=== PATIENT | female | born 1935 | race Caucasian/White ===

== ENCOUNTER 2017-07-05 13:57 | Inpatient (IN) | payer MEDICARE ==
[2017-07-05 14:46] LABS: PTT 36.2 SEC (22.9-36.1); Prothrombin Time 13.4 SEC (12.0-14.7)
[2017-07-05] MEDS ORDERED: Zolpidem Tartrate 5 MG TAB PO PRN (15:48)
[2017-07-05] MEDS ORDERED: Ondansetron HCl/PF 4 MG/2 ML Vial IVP PRN (15:48)
[2017-07-05] MEDS ORDERED: Sodium Chloride 0.9% 1,000 ML IV SCH (16:00)
--- NOTE | 2017-07-05 16:01 | PDOC.EVN ---
Event Note - Event Note Event Note: H&P #[id number]
[2017-07-05 16:09] LABS: Hemoglobin A1c 5.6 % (4.0-6.0)
[2017-07-05] MEDS ORDERED: Aspirin 81 mg Enteric Coated Tablet PO SCH (17:30)
--- NOTE | 2017-07-05 18:05 | ULT ---
CAROTID DOPPLER ULTRASOUND EVALUATION: HISTORY: TIA and possible stroke. TECHNIQUE: Multiple longitudinal and transverse images of the carotid arteries were obtained using a Multi-Hertz linear array transducer. Real-time, color-flow, and spectral wave-form Doppler analysis was used to evaluate the carotid arteries. FINDINGS: Images demonstrate calcified and noncalcified plaques seen in the right and left internal carotid art eries. flow velocities in the right ICA measure 81/20 cm per second and in the left ICA 124/34 cm pe r second. Findings suggest mild proximal right ICA and mild to moderate proximal left ICA stenosis, approximately 10% to 15% on the right and approximately 30% to 40% on the left ICA. Antegrade flow i s seen in both vertebral arteries. The ICA/CCA ratio measures 1.2 on the right and 1.6 on the left. IMPRESSION: Approximately 15% to 20% right internal carotid artery and approximately 30% left internal carotid ar cara stenosis. POS: [facility]
[2017-07-05] MEDS ORDERED: Ondansetron ODT 4 MG TAB SL PRN (18:09)
[2017-07-05] MEDS ORDERED: Nitroglycerin 0.4 MG TAB (25 Tab Bottle) SL PRN (18:23)
[2017-07-05] MEDS ORDERED: hydrALAZINE 25 MG TAB PO SCH (18:30)
[2017-07-05] MEDS ORDERED: Diltiazem HCl CD 300 mg Capsule PO SCH (18:30)
[2017-07-05] MEDS ORDERED: cloNIDine 0.2 MG TAB PO SCH (18:30)
[2017-07-05 18:38] VITALS: BMI 25.8
--- NOTE | 2017-07-05 19:59 | HP ---
DATE OF ADMISSION: 07/05/2017 CHIEF COMPLAINT: Syncope and palpitation. HISTORY OF PRESENT ILLNESS: This is a 81-year-old female, who is being admitted to the hospital, kirk jade coming into the ER due to syncope and palpitation. Patient states that she was in the bathroom an d then when she got up she was unable to make it back to bed that she almost syncopized and passed ou t. The patient states that she was able to sit down and did not have a fall or anything along those lines, but did admit to some palpitation prior to coming to the ER and patient in the ER was found to have a normal sinus rhythm; however, was found to have significant weakness. The patient had a CT s can done at outside ER, which showed no acute intracranial abnormalities or bleeding and was transfer red to [facility] for further management and care. The patient at this point in time is being yadira luated Internal Medicine for admission. Patient currently states that she feels weak, but denies any other complaints or associated symptoms. No alleviating or aggravating factors noted. The patient was seen and examined with and at bedside. All questions answered. ALLERGIES: SHAUN states that she was told not to take it as edematous or kidneys. PAST MEDICAL HISTORY: Positive for paroxysmal atrial fibrillation, syncope, hypertension, and shepherd ry artery disease. HOME MEDICATIONS: See MAR. SOCIAL HISTORY: Denies any drinking or smoking. Currently, however, did quit smoking a few years ba ck, having had a [id number] smoking history. FAMILY HISTORY: Positive for hypertension on both sides. REVIEW OF SYSTEMS: All systems reviewed. Pertinent positives in the HPI, otherwise negative. PHYSICAL EXAMINATION: VITAL SIGNS: Blood pressure is 170/81, heart rate is 70, respiratory rate of 12, and temperature of 98. GENERAL: The patient lying in bed, appears in mild distress and appears significantly weak. HEENT: Pupils equal, round, reactive to light and accommodation. Oral cavity moist and pink. Normo cephalic, atraumatic. NECK: Supple, mobile, nontender, thyroid: Reveals carotid bruit present bilateral carotids. LUNGS: Examination Reveals clear to auscultation bilaterally. No murmurs, gallops or rubs. No rale s, rhonchi, or wheezing appreciated. CARDIOVASCULAR: Reveals regular rate and rhythm. S1, S2, 2/6 systolic ejection murmur appreciated. ABDOMEN: Positive bowel sounds, soft, nontender, nondistended. EXTREMITIES: 2+ peripheral pulses. No loss of motor or sensory function. No edema noted. NEUROLOGIC: Cranial nerves II-XII intact. Answering all commands, answering all questions and follo wing all commands appropriately. ASSESSMENT AND PLAN: 1. Syncope. 2. Paroxysmal atrial fibrillation. 3. Hypertension. 4. Coronary artery disease. We will admit the patient to tele ops at this point in time, we will provide the patient with aspirin as well as 1 liter of normal saline at 70 mL per hour. We will also put the patient on deep venous thrombosis prophylaxis with heparin 55,000 units subcu b.i.d. and gastrointestinal prophylaxis with 2 0 p.o. b.i.d., consult to Dr. Sifuentes, who is a general manager in training. We will also obtain echocardiogram, MRI o f the brain and carotid ultrasounds. Check A1c for diabetic status. Also, will check thyroid hormon e urinalyses and serial labs. The patient wishes to remain a full code at this point in time. Disch arge planning in 24-48 hours depending on lab results. If they are negative and cleared by Cardiolog y and the patient is feeling well. The patient will need to follow up with outpatient for further wo rkup for her syncopal episodes. We will also obtain orthostatic vital signs. Case and plan discusse d with the patient's daughter and at length. They understand and agree with this plan.
[2017-07-05] MEDS: Famotidine 20 MG TAB PO SCH (21:33)
[2017-07-05] MEDS: Heparin 5,000 UNITS/ML VIAL SC SCH (21:34)
[2017-07-06 02:54] LABS: Bilirubin Negative (Negative); Blood, Urine Negative (Negative); Clarity CLEAR (Clear); Glucose, Urine (Dipstick) 100 mg/dL (Negative); Leukocyte Small (Negative); Nitrite Negative (Negative); Protein, Urine (Dipstick) Negative (Neg-Trace); Specific Gravity, Urine 1.009 (1.002-1.036); Urobilinogen 0.2 mg/dL (0.2-1.0); pH, Urine 6.5 (5.0-9.0)
[2017-07-06 02:59] LABS: Bacteria/HPF None Seen HPF (None Seen); Hyaline Casts/LPF 0-3 HYALINE CAST LPF (0-3 Hyaline); Pathc Cast-AUWi Flag 0.29 (0-2.49); RBC/HPF 0-3 HPF (0-3); Squamous Epithelial 0-3 HPF (0-3)
[2017-07-06 05:57] LABS: #Basophils 0.1 thou/uL (0.0-0.2); #Eosinphils 0.1 thou/uL (0.0-0.7); #Lymphocytes 1.7 thou/uL (1.20-3.40); #Monocytes 0.5 thou/uL (0.11-0.59); #Neutrophils 6.7 thou/uL (1.40-6.50); %Basophils 0.6 % (0.0-1.0); %Eosinophils 1.5 % (0.0-10.0); %Lymphocytes 18.3 % (21.0-51.0); %Monocytes 5.6 % (0.0-10.0); Hemoglobin 11.6 g/dL (12.0-16.0); Mean Corpuscular HGB CONC 32.6 g/dL (32.0-36.0); Mean Corpuscular Hemoglobin 30.5 pg (27.0-31.0); Mean Corpuscular Volume 93.7 fl (81.0-99.0); Mean Platelet Volume 6.6 fL (7.4-10.4); Platelet Count 208 thou/uL (130-400); RBC Distribution Width 12.4 % (11.5-14.5); Red Blood Cell (RBC) Count 3.79 mill/uL (4.20-5.40)
[2017-07-06 06:17] LABS: Anion Gap 13 mmol/L (10-20); BUN (Urea Nitrogen) 17 mg/dL (9.8-20.1); Calc. Creatinine Clearance 38 mL/min (70-130); Calcium 9.1 mg/dL (7.8-10.44); Carbon Dioxide 24 mmol/L (23-31); Chloride 107 mmol/L (98-107); Estimated GFR-MDRD 43; Glucose 113 mg/dL (83-110); Potassium 3.9 mmol/L (3.5-5.1); Sodium 140 mmol/L (136-145)
[2017-07-06] MEDS: Diltiazem HCl CD 300 mg Capsule PO SCH (09:32)
[2017-07-06] MEDS: Famotidine 20 MG TAB PO SCH ×2 (09:34→22:14)
[2017-07-06] MEDS: hydrALAZINE 25 MG TAB PO SCH ×3 (09:34→22:13)
[2017-07-06] MEDS: Heparin 5,000 UNITS/ML VIAL SC SCH ×2 (09:38→22:13)
--- NOTE | 2017-07-06 11:19 | MRI ---
MRI BRAIN WITHOUT CONTRAST: HISTORY: Left-sided weakness. TIA. CORRELATION: CT scan from the previous day. FINDINGS: There are multiple foci of T2 prolongation in the periventricular white matter, consistent with chron ic small vessel ischemic disease. There is ventricular sulcal prominence due to cortical atrophy. N o restricted diffusion is seen. There is an old lacunar infarct in the right basal ganglia. There i s fluid in the mastoid air cells, right greater than left. IMPRESSION: No evidence of acute intracranial process. POS: [facility]
[2017-07-06] MEDS: Acetaminophen 325 MG TAB PO PRN ×2 (11:29→16:14)
--- NOTE | 2017-07-06 15:37 | PDOC.PN ---
- Subjective Encounter Start Date: 07/06/17 Encounter Start Time: 14:00 Patient is seen today, admitted with Weakness which resolved but has perssitant weakness of right low er extremity since recent weeks, Cindy MRI did show remote h/o stroke, which pt is not aware, pt has h/o paroxysmall Afib, now rhythm is regular. She had no PT/OT evaluation completed this admission,. - Objective Resuscitation Status: Resuscitation Status FULL:Full Resuscitation MAR Reviewed: Yes Vital Signs & Weight: Vital Signs (12 hours) Temp Pulse Resp BP BP BP Pulse Ox 07/06/17 15:10 77 207/88 H 07/06/17 15:09 207/88 H 07/06/17 12:13 98.4 F 77 16 151/64 H 95 07/06/17 09:49 98.6 F 64 16 07/06/17 09:34 64 155/64 H 07/06/17 09:32 64 155/64 H 07/06/17 07:20 98.6 F 64 15 155/64 H 93 L 07/06/17 04:36 98.5 F 66 14 137/53 L 93 L Weight Weight 141 lb 1.533 oz Result Diagrams: 07/06/17 05:15 07/06/17 05:15 Radiology Reviewed by me: Yes Phys Exam - Physical Examination HEENT: PERRLA, moist MMs Neck: no nodes, no JVD Respiratory: no wheezing, no rales Cardiovascular: RRR, no significant murmur Gastrointestinal: soft Musculoskeletal: no edema, pulses present Right Lower Extemity weakness. Lymphatic: no nodes Psychiatric: normal affect Skin: no rash Dx/Plan (1) Paroxysmal A-fib Code(s): I48.0 - PAROXYSMAL ATRIAL FIBRILLATION Status: Acute Comment: PT is In and out of Afib, with a remote/ Recent h/o Stroke Left Basal gaangli, has persitant weakness right leg. Pt will need Cardioogy to Decide if she would beneifit from Anticoagulation due to her Stroke and paroxysmal Afib. Echo is pending. (2) TIA (transient ischemic attack) Status: Acute Comment: MRI showed no acutre infarct but has recent infarct. (3) CVA (cerebral vascular accident) Code(s): I63.9 - CEREBRAL INFARCTION, UNSPECIFIED Status: Acute (4) HTN (hypertension) Code(s): I10 - ESSENTIAL (PRIMARY) HYPERTENSION Status: Acute Comment: Well controlled, But Family says sometimes BP are not controlled at Home, need monitoring. - Plan cont current plan of care, plan discussed w/ family, laura catheter, PT/OT, social work lecturer, incentive spirometry, out of bed/ambulate, DVT proph w/lovenox * . - Discharge Day Encounter end time: 14:35 Review of Systems - Review of Systems Constitutional: negative: fever, chills, sweats, weakness, malaise, other Eyes: negative: Pain, Vision Change, Conjunctivae Inflammation, Eyelid Inflammation, Redness, Other ENT: negative: Ear Pain, Ear Discharge, Nose Pain, Nose Discharge, Nose Congestion, Mouth Pain, Mouth Swelling, Throat Pain, Throat Swelling, Other Respiratory: negative: Cough, Dry, Shortness of Breath, Hemoptysis, SOB with Excertion, Pleuritic Pain, Sputum, Wheezing Cardiovascular: negative: chest pain, palpitations, orthopnea, paroxysmal nocturnal dyspnea, edema, light headedness, other Gastrointestinal: negative: Nausea, Vomiting, Abdominal Pain, Diarrhea, Constipation, Melena, Hematochezia, Other Genitourinary: negative: Dysuria, Frequency, Incontinence, Hematuria, Retention , Other Musculoskeletal: negative: Neck Pain, Shoulder Pain, Arm Pain, Back Pain, Hand Pain, Leg Pain, Foot Pain, Other Skin: negative: Rash, Lesions, Benjie, Bruising, Other - Medications/Allergies Allergies/Adverse Reactions: Allergies Allergy/AdvReac Type Severity Reaction Status Date / Time Sulfa (Sulfonamide Allergy Verified 07/06/17 04:01 Antibiotics) Medications: Current Medications Acetaminophen (Tylenol) 325 mg PO Q4H PRN PRN Reason: Headache/Fever or Pain Last Admin: 07/06/17 11:29 Dose: 325 mg Clonidine (Catapres) 0.2 mg PO BIDPRN PRN PRN Reason: .SBP>170 Diltiazem HCl (Cardizem Cd) 300 mg PO QAM [facility] Last Admin: 07/06/17 09:32 Dose: 300 mg Famotidine (Pepcid) 20 mg PO BID [facility] Last Admin: 07/06/17 09:34 Dose: 20 mg Heparin Sodium (Porcine) (Heparin) 5,000 units SC BID [facility] Last Admin: 07/06/17 09:38 Dose: 5,000 units Hydralazine HCl (Apresoline) 50 mg PO TID [facility] Last Admin: 07/06/17 15:10 Dose: 50 mg Nitroglycerin (Nitrostat) 0.4 mg SL Q5MIN PRN PRN Reason: Chest Pain Ondansetron HCl (Zofran) 4 mg IVP Q6H PRN PRN Reason: Nausea/Vomiting Zolpidem Tartrate (Ambien) 5 mg PO HSPRN PRN PRN Reason: Insomnia
--- NOTE | 2017-07-06 15:56 | CON ---
DATE OF CONSULTATION: 07/06/2017 REASON FOR CONSULTATION: Presyncope. HISTORY OF PRESENT ILLNESS: Ms. Dimas is a 81-year-old woman with a past history of remote tobacco a buse in addition to hypertension, who recently presented with near syncope. She states her legs sesar me weak. She nearly passed out. She had nausea and dizziness. No other ameliorating, exacerbating, or precipitating factors present. She had no chest pain or pressure noted. She has chronic shortne ss of breath. She then presented to the emergency room with the above. There was concern for CVA, b ut her MRI so far has been negative. PAST MEDICAL HISTORY: As described above including right and left knee surgery, hypertension. ALLERGIES: SULFA. HOME MEDICATIONS: Include, aspirin, Catapres, hydralazine, Cartia, Nitrostat, and atorvastatin. REVIEW OF SYSTEMS: Ten-point review of systems reviewed and as above, otherwise negative. PHYSICAL EXAMINATION: GENERAL: Patient is a pleasant female who is in no acute distress. She does appear older than state d age. VITAL SIGNS: Blood pressure 207/88, pulse 77, and temperature 98.4 NEUROLOGIC: The patient is alert and oriented times 3 with no focal neurologic deficits. HEENT: Sclerae without icterus. Mouth has moist mucous membranes with normal pallor. NECK: No JVD. Carotid upstroke brisk. No bruits bilaterally. LUNGS: Clear to auscultation with unlabored respirations. BACK: No scoliosis or kyphosis. CARDIAC: Regular rate and rhythm with normal S1 and S2. No S3 or S4 noted. No significant rubs, murmurs, thrills, or gallops noted throughout the precordium. PMI is not displaced. There is no parasternal heave. ABDOMEN: Soft, nontender, nondistended. No peritoneal signs present. No hepatosplenomegaly. No abnormal striae. EXTREMITIES: 2+ femoral and 2+ dorsalis pedis pulses. No cyanosis, clubbing, or edema. SKIN: No gross abnormalities. PERTINENT LABORATORY DATA: Hemoglobin 11.6. Creatinine 1.22, potassium 3.9. Carotid Doppler 15% to 20% right internal carotid stenosis, 30% left internal carotid stenosis, other sosa negative. Echo with Doppler pending. IMPRESSION: 1. Presyncope. 2. Hypertension. RECOMMENDATIONS: Ms. Dimas' EKG did show a nonspecific ST-T wave changes. At this point, we would r ecommend a noninvasive stress study to assess for any areas of ischemia. She did have nausea, vomiti ng, diaphoresis, which may be related to a vasovagal syncope, but may also be due to underlying coron anayeli disease. Her CK troponins are negative. Echo with Doppler pending. If the above is negative, melba lopez would then recommend a 3-week outpatient event recorder to assess for any areas of ischemia.
[2017-07-06] MEDS: cloNIDine 0.2 MG TAB PO PRN (16:27)
[2017-07-07 04:47] LABS: #Basophils 0.1 thou/uL (0.0-0.2); #Eosinphils 0.2 thou/uL (0.0-0.7); #Lymphocytes 1.6 thou/uL (1.20-3.40); #Monocytes 0.5 thou/uL (0.11-0.59); #Neutrophils 4.6 thou/uL (1.40-6.50); %Basophils 0.7 % (0.0-1.0); %Eosinophils 2.9 % (0.0-10.0); %Lymphocytes 22.3 % (21.0-51.0); %Monocytes 7.6 % (0.0-10.0); %Neutrophils 66.5 % (42.0-75.0); Hemoglobin 11.7 g/dL (12.0-16.0); Mean Corpuscular HGB CONC 33.2 g/dL (32.0-36.0); Mean Corpuscular Hemoglobin 31.1 pg (27.0-31.0); Mean Corpuscular Volume 93.4 fl (81.0-99.0); Mean Platelet Volume 6.6 fL (7.4-10.4); Platelet Count 213 thou/uL (130-400); RBC Distribution Width 12.3 % (11.5-14.5); Red Blood Cell (RBC) Count 3.78 mill/uL (4.20-5.40)
[2017-07-07 05:11] LABS: Anion Gap 13 mmol/L (10-20); BUN (Urea Nitrogen) 11 mg/dL (9.8-20.1); Calc. Creatinine Clearance 38 mL/min (70-130); Calcium 9.3 mg/dL (7.8-10.44); Carbon Dioxide 26 mmol/L (23-31); Chloride 105 mmol/L (98-107); Estimated GFR-MDRD 43; Glucose 111 mg/dL (83-110); Potassium 3.5 mmol/L (3.5-5.1); Sodium 140 mmol/L (136-145)
[2017-07-07] MEDS: cloNIDine 0.2 MG TAB PO PRN (05:44)
[2017-07-07] MEDS ORDERED: Ondansetron ODT 4 MG TAB PO PRN (06:05)
[2017-07-07] MEDS: Diltiazem HCl CD 300 mg Capsule PO SCH (10:56)
[2017-07-07] MEDS: Famotidine 20 MG TAB PO SCH (10:56)
[2017-07-07] MEDS: Heparin 5,000 UNITS/ML VIAL SC SCH (10:56)
[2017-07-07] MEDS: hydrALAZINE 25 MG TAB PO SCH (10:56)
[2017-07-07 12:12] VITALS: TEMP 97.2
[2017-07-07] MEDS ORDERED: Acetaminophen 325 MG TAB PO PRN (12:20)
[2017-07-07] MEDS ORDERED: Regadenoson 0.4 MG/5 ML SYRINGE ONE (13:52)
--- NOTE | 2017-07-07 14:00 | NM ---
CARDIAC SPECT: HISTORY: A 81-year-old female with syncope, atrial fibrillation, and hypertension. TECHNIQUE: A myocardial perfusion scan was performed using the single isotope one day protocol with technetium 9 9m sestamibi, and 11 millicuries was injected intravenously for the rest exam, followed by 33 millicu tessa for the stress study. Pharmacologic stress with Lexiscan was monitored and interpreted by Dr. Naseem montana. FINDINGS: Homogeneous tracer distribution was seen in the myocardial segments on stress and images without fixe d or reversible defects. GATED SPECT LVEF: 67%. WALL MOTION EXAM: Normal. IMPRESSION: Normal myocardial perfusion scan. POS: [facility]
[2017-07-07 15:00] LABS: Cardiac Risk 5.7 (Less than 4.5)
[2017-07-07 19:02] VITALS: BP 157/70
--- NOTE | 2017-07-07 20:25 | EKG ---
Test Reason : Blood Pressure : / mmHG Vent. Rate : 079 BPM Atrial Rate : 079 BPM P-R Int : 146 ms QRS Dur : 084 ms QT Int : 384 ms P-R-T Axes : 044 -12 035 degrees QTc Int : 440 ms Normal sinus rhythm Normal ECG No previous ECGs available Confirmed by CHAR MANZANO (2) on 07/07/2017 8:24:48 PM Referred By: LUANNE Confirmed By:CHAR MANZANO
[2017-07-08] MEDS ORDERED: Famotidine 20 MG TAB PO SCH (09:00)
--- NOTE | 2017-07-08 14:01 | DIS ---
DATE OF ADMISSION: 07/05/2017 DATE OF DISCHARGE: 07/07/2017 ADMITTING DIAGNOSIS: Acute syncope. DISCHARGE DIAGNOSIS: Acute syncope likely from paroxysmal atrial fibrillation. SECONDARY DIAGNOSES 1. Hypertension. 2. Coronary artery disease. 3. History of remote cerebrovascular accident. CONSULTANTS INVOLVED: Dr. Cardoza. HISTORY OF PRESENT ILLNESS AND HOSPITAL COURSE: In brief, this is a 81-year-old white female, who wa s admitted to the hospital while coming into the ER due to syncope and palpitations. She states that she was in the bathroom when she got up she was unable to make it back to the bed and that she almos t syncopized and passed out. The patient states that she was able to sit down and did not have a fal l or anything along those lines. But she was found to have a normal sinus rhythm; however, in the ER and a CT scan of the head was done, which did not show any evidence of acute cardiopulmonary abnorma lities, but did show an old and recent infarct, so the patient had a MRI of the brain, which did reve al the patient had a subacute to recent infarct, but there was no acute infarction. The patient did not have any acute weakness, but she had a persistent weakness of her right lower extremity. So, Car diology was consulted as there was suspicion that the patient could be having drop attacks is seconda ry to paroxysmal atrial fibrillation or some arrhythmias, so Cardiology did a nuclear stress test, wh ich came back unremarkable and 2D echo was normal with good EF. Patient was in normal sinus rhythm, so there was no evidence that the patient had a CVA during this admission and she was on aspirin and because of the risk of falls, the patient was advised to not on any anticoagulation except for aspiri n. The patient was also started on atorvastatin because the suspicion of a TIA. The patient was ritchie sely monitored and also was planned for a Holter monitor by Cardiology. The patient was discharged h ome with a Holter monitor. PHYSICAL EXAMINATION: On date of discharge: VITAL SIGNS: Blood pressures are 148/71, heart rate is 72, respiration is 18, and saturation 95%. GENERAL: The patient is moderately obese, moderately nourished. CARDIOVASCULAR: S1 and S2 normal. No murmurs, rubs, or gallops. LUNGS: Bilateral air entry was equal. No wheezing, no crackles. ABDOMEN: Soft, nontender. No guarding or rebound tenderness. Bowel sounds normal. DISCHARGE MEDICATIONS: Atorvastatin 20 mg p.o. daily. HOME MEDICATIONS: Aspirin 81 mg daily, clonidine 0.2 mg p.o. b.i.d., diltiazem 300 mg p.o. daily, hy dralazine 50 mg p.o. t.i.d., and nitroglycerin 0.4 mg p.r.n. for chest pain. DISCHARGE INSTRUCTIONS: 1. The patient will be going home with a Holter monitor. 2. The patient will follow up with Cardiology as needed and as per their instructions. 3. The patient is going to follow up with the primary care physician in 1-2 weeks. DISCHARGE INSTRUCTIONS: 1. The patient will continue with a cardiac diet at this time. 2. Continue activity as tolerated. I spent 35 minutes with this patient on day of discharge.
== END 2017-07-07 15:31 | disposition home or self-care (01) | DRG 69 ==
LOC: ERS 13:57 → 2SE 14:44
PROVIDERS: ADMIT Internal Medicine; ATTEND Internal Medicine
DX: G45.9 Transient cerebral ischemic attack, unspecified (principal); I48.0 Paroxysmal atrial fibrillation; I10 Essential (primary) hypertension; I25.10 Atherosclerotic heart disease of native coronary artery without angina pectoris; Z87.891 Personal history of nicotine dependence; Z79.82 Long term (current) use of aspirin
CPT/HCPCS: 36415; 36416; 70551; 78452; 80048; 80061; 81001; 83036; 84443; 85025; 93005; 93010; 93017; 93306; 93880; A9500; G8978-GP-CL; G8979-GP-CK; G8987-GO-CI; G8988-GO-CI; G8989-GO-CI; J1644; J2785; Q0162

== ENCOUNTER 2018-08-05 12:04 | Inpatient (IN) | payer MEDICARE ==
--- NOTE | 2018-08-05 13:55 | CT ---
CT of the face: 08/05/2018 COMPARISON: None HISTORY: Right-sided facial swelling TECHNIQUE: Serial axial CT imaging obtained at 2.5 mm intervals through the face with IV contrast. Co raul and sagittal reformatted imaging obtained. FINDINGS: Visualized brain parenchyma demonstrates prominence of the ventricular system and extensive periventricular hypodensity suggesting significant small vessel disease. The frontal sinuses, ethmoid air cells, maxillary sinuses, sphenoid sinuses, and imaged mastoid air c ells demonstrate no acute findings. There are a few opacified mastoid air cells inferiorly on the right of doubtful clinical significance. There is soft tissue swelling with subcutaneous fat stranding along the superior and lateral aspect o f the right orbit. The retroantral fat and the parapharyngeal fat appears clear bilaterally. There is enlargement of the right parotid gland with respect to the left. Margins of the right paroti d gland are irregular and the right parotid gland appears edematous, with stranding of the adjacent subcutaneous fat and thickening of the adjacent skin. There is no discrete mass identified within the parotid gland on either side. There is no calcification seen along the course of the parotid duct on either side. Submandibular glands appear grossly unremarkable bilaterally. The internal carotid artery and the common carotid artery are medialized, right greater than left. Th ere is prominent atherosclerotic calcification involving the distal CCA and proximal ICA bilaterally, left greater than right. There is no evidence for a soft tissue abscess. Review of the osseous structures demonstrates no acut e findings. Imaged cervical spine demonstrates significant multilevel facet and uncovertebral osteophyte formatio n. Mildly enlarged level 1 and level 2A lymph nodes are seen, right greater than left. IMPRESSION: Soft tissue inflammatory change on the right in the right periorbital region and adjacent to the right parotid gland. The right parotid gland is enlarged and edematous with peripheral contour irregularity and overlying subcutaneous fat stranding suggesting right parotiditis.
[2018-08-05] MEDS ORDERED: Sodium Chloride 0.9% 1,000 ML IV SCH (14:37)
[2018-08-05] MEDS ORDERED: Guaifenesin DM 100-10/5 ML UDCUP PO PRN (14:37)
[2018-08-05] MEDS ORDERED: Senokot S 8.6-50 MG TAB PO PRN (14:37)
[2018-08-05] MEDS ORDERED: Bisacodyl 10 MG SUPP PR PRN (14:37)
[2018-08-05] MEDS: cefTRIAXone\\ROCEPHIN 1 GM in Sodium Chloride 0.9% 100 ML IVPB SCH (16:00)
[2018-08-05] MEDS: Acetaminophen 325 MG TAB PO PRN (16:02)
[2018-08-05 16:34] VITALS: BMI 24.1
[2018-08-05] MEDS ORDERED: Cepastat Lozenges 1 LOZ PO PRN (16:37)
[2018-08-05] MEDS: Clindamycin/D5W 600 MG in Premix Bag 1 BAG IVPB SCH ×2 (17:11→23:34)
--- NOTE | 2018-08-05 18:58 | HP ---
REASON FOR ADMISSION: Right parotitis with facial cellulitis. HISTORY OF PRESENTING ILLNESS: The patient gives history of waking up around 4 a.m. to go to restroom. Her legs apparently gave up, but her managed to get her to the bed. Around 5:30 a.m., the usual time she wakes up, the patient was disoriented and thought it was night. Around 7 a.m., her daughter noticed swelling of her right face, eye, and neck area, this was red in color as well. She was tender to touch to the area. They initially thought it was stroke and called EMS. also mentions that the patient was asking for her mom who is 11 years now, they all got scared in addition to all of this. She has not had any new medications. Her dentures are old, which she rarely uses per patient. The patient does not have any teeth. No history of shingles in the past. Has no trouble with vision at present. She can move her eye balls in all directions now. PAST MEDICAL AND SURGICAL HISTORY: History of chronic kidney disease stage 3, dyslipidemia, prior history of TIA, chronic atrial fibrillation, history of AAA, right knee surgery done more than 20 years back, cataract surgeries in both eyes. The patient has a senior software systems engineer embedded in her chest wall per the patient and has a device to transmit the same in the house. CURRENT MEDICATIONS: The patient is on, 1. Cardizem CD 300 mg daily. 2. Hydralazine 100 mg three times daily. 3. Clonidine 0.2 mg twice daily p.r.n. 4. Eliquis 2.5 mg twice daily. 5. MiraLAX 17 g daily. 6. Metoprolol extended release 50 mg daily. ALLERGIES: ALLERGIC TO SULFA. PERSONAL HISTORY: Does not abuse alcohol or drugs. Quit smoking more than 15 years back. Lives with her . FAMILY HISTORY: Both her parents are diseased. The patient does not recall the exact reason. CODE STATUS: Full. POWER OF CHIP SILO TENDER: Her . REVIEW OF SYSTEMS: CONSTITUTIONAL: Negative for weight loss or gain, ability to conduct usual activities. SKIN: Negative for rash, itching. EYES: Negative for double vision, pain. ENT/MOUTH: Negative for nose bleeding, neck stiffness, pain, tenderness. CARDIOVASCULAR: Negative for palpitations, dyspnea on exertion, orthopnea. RESPIRATORY: Negative for shortness of breath, wheezing, cough, hemoptysis, fever or night sweats. GASTROINTESTINAL: Negative for poor appetite, abdominal pain, heartburn, nausea , vomiting, constipation, or diarrhea. GENITOURINARY: Negative for urgency, frequency, dysuria, nocturia. MUSCULOSKELETAL: Negative for pain, swelling. NEUROLOGIC/PSYCHIATRIC: Negative for anxiety, depression. ALLERGY/IMMUNOLOGIC: Negative for skin rash, bleeding tendency. PHYSICAL EXAMINATION: GENERAL: The patient is an 82-year-old female, who is currently in moderate distress from pain and swelling on the right side of her face. VITAL SIGNS: Blood pressure 164/60, pulse 66 per minute, respiratory rate 18 per minute, temperature 99.1 degrees Fahrenheit, and saturating 95% on room air. NECK: Supple. No elevated JVD. HEENT: Eyes; extraocular muscles intact. The patient has edema for upper and lower eyelids. She also has edema of right side of her face, which is in fact better per family members here. She has tenderness to the right parotid gland, which is edematous and erythematous as well. The edema and erythema trickles down into her right lateral neck wall. CARDIOVASCULAR: S1 and S2 heard. Regular rhythm. RESPIRATORY: Air entry 1+ bilateral. No rales or rhonchi. ABDOMEN: Soft. Bowel sounds heard. No tenderness, rigidity, or guarding. EXTREMITIES: The patient has pedal edema, but no edema in the legs. No calf tenderness. VASCULAR: Peripheral pulses 1+ bilateral. No ischemic ulcerations or gangrene. CENTRAL NERVOUS SYSTEM: No gross focal deficits noted. The patient is alert, awake, and oriented well now. PSYCHIATRIC: The patient's mood is euthymic. No hallucinations or delusions. LABORATORY DATA: BUN 38, creatinine 1.6, serum bicarb 27. Electrolytes stable. Liver enzymes within normal limits. Albumin is 4.1. White count of 14, hemoglobin and hematocrit 10 and 33, platelet count 214 with 88% neutrophils, MCV is 93. Facial bones CAT scan done shows soft tissue inflammatory change in the right periorbital region and adjacent to the right parotid gland. The right parotid gland is enlarged and edematous with peripheral contour irregularity and overlying subcutaneous fat stranding suggesting right parotitis. Chest x-ray done shows no acute cardiopulmonary disease. CT brain without contrast done shows no acute intracranial abnormality. CLINICAL IMPRESSION AND PLAN: The patient will be admitted to medical floor for right facial cellulitis with right parotitis. She will be placed on ceftriaxone and clindamycin. Blood cultures have been obtained in the ER. We will continue her aspirin, Eliquis, Lipitor, and Cardizem CD as before. I have discussed her findings with Dr. Diogenes Silverman, ENT physician over the phone. The plan is to give her antibiotics to see if right parotitis resolves. If it gets worse, Dr. Silverman will be contacted for help. We will also ask her to have sour lozenges every 4 to 6 hours to help with drainage of saliva from her right parotid glands. Job ID: [id number] MTDD
[2018-08-05] MEDS ORDERED: Nitroglycerin 0.4 MG TAB (25 Tab Bottle) SL PRN (19:28)
[2018-08-05] MEDS: Famotidine 20 MG TAB PO SCH (19:45)
[2018-08-05] MEDS: hydrALAZINE 25 MG TAB PO SCH (19:45)
[2018-08-05] MEDS: Apixaban 2.5 MG TAB PO SCH (20:33)
[2018-08-05] MEDS: Ondansetron PF 4 MG/2 ML Vial IVP PRN (21:52)
[2018-08-05] MEDS: cloNIDine 0.2 MG TAB PO PRN (23:55)
[2018-08-06 05:19] LABS: #Lymphocytes 0.9 thou/uL (1.20-3.40); #Monocytes 0.5 thou/uL (0.11-0.59); #Neutrophils 8.3 thou/uL (1.40-6.50); %Basophils 0.3 % (0.0-1.0); %Eosinophils 0.2 % (0.0-10.0); %Lymphocytes 9.6 % (21.0-51.0); %Monocytes 5.5 % (0.0-10.0); %Neutrophils 84.4 % (42.0-75.0); Hemoglobin 9.2 g/dL (12.0-16.0); Mean Corpuscular HGB CONC 32.7 g/dL (32.0-36.0); Mean Corpuscular Hemoglobin 31.1 pg (27.0-31.0); Mean Platelet Volume 6.6 fL (7.4-10.4); Platelet Count 188 thou/uL (130-400); RBC Distribution Width 13.4 % (11.5-14.5); Red Blood Cell (RBC) Count 2.95 mill/uL (4.20-5.40); White Blood Cell (WBC) Count 9.8 thou/uL (4.8-10.8)
[2018-08-06 05:40] LABS: Anion Gap 12 mmol/L (10-20); BUN (Urea Nitrogen) 28 mg/dL (9.8-20.1); Calc. Creatinine Clearance 32 mL/min (70-130); Calcium 8.9 mg/dL (7.8-10.44); Carbon Dioxide 27 mmol/L (23-31); Chloride 105 mmol/L (98-107); Estimated GFR-MDRD 37; Glucose 112 mg/dL (83-110); Potassium 3.8 mmol/L (3.5-5.1); Sodium 140 mmol/L (136-145)
[2018-08-06] MEDS: Clindamycin/D5W 600 MG in Premix Bag 1 BAG IVPB SCH ×3 (08:35→23:09)
[2018-08-06] MEDS ORDERED: Prevnar 13-Val Conj/PF 0.5 ML SYRINGE IM ONE (09:00)
[2018-08-06] MEDS: Famotidine 20 MG TAB PO SCH ×2 (09:04→19:33)
[2018-08-06] MEDS: Atorvastatin Calcium 20 MG TAB PO SCH (09:04)
[2018-08-06] MEDS: hydrALAZINE 25 MG TAB PO SCH ×3 (09:04→19:32)
[2018-08-06] MEDS: Aspirin 81 mg Enteric Coated Tablet PO SCH (09:04)
[2018-08-06] MEDS: Diltiazem HCl CD 300 mg Capsule PO SCH (09:05)
[2018-08-06] MEDS: Apixaban 2.5 MG TAB PO SCH ×2 (09:05→19:33)
[2018-08-06] MEDS: Acetaminophen 325 MG TAB PO PRN ×2 (12:12→23:47)
--- NOTE | 2018-08-06 15:11 | PDOC.PN ---
- Subjective Encounter Start Date: 08/06/18 Encounter Start Time: 12:15 Subjective: pt up in bed has intermittent confused - Objective Resuscitation Status - Order Detail: 08/05/18 14:30 Resuscitation Status Routine Resuscitation Status: FULL: Full Resuscitation Discussed with: POA: Vital Signs & Weight: Vital Signs (12 hours) Temp Pulse Resp BP BP Pulse Ox 08/06/18 11:19 98.4 F 67 14 153/79 H 93 L 08/06/18 09:05 67 163/79 H 08/06/18 09:04 67 163/75 H 08/06/18 08:00 98.4 F 67 20 163/75 H 93 L 08/06/18 03:40 98.6 F 74 16 135/65 96 Weight Weight 136 lb 3.931 oz Result Diagrams: 08/06/18 05:10 08/06/18 05:10 Phys Exam - Physical Examination right orbital mild edema, some left orbital swelling, pain to right maxillary area Neck: no nodes, no JVD, supple, full ROM Respiratory: no wheezing, no rales, no rhonchi, wheezing present, clear to auscultation bilateral Cardiovascular: RRR, no significant murmur, no rub, gallop, irregular Gastrointestinal: soft, non-tender, no distention, positive bowel sounds Musculoskeletal: no edema, pulses present, edema present Dx/Plan (1) Facial cellulitis Code(s): L03.211 - CELLULITIS OF FACE Status: Acute (2) HTN (hypertension) Code(s): I10 - ESSENTIAL (PRIMARY) HYPERTENSION Status: Acute Comment: Well controlled, But Family says sometimes BP are not controlled at Home, need monitoring. (3) Paroxysmal A-fib Code(s): I48.0 - PAROXYSMAL ATRIAL FIBRILLATION Status: Acute Comment: PT is In and out of Afib, with a remote/ Recent h/o Stroke Left Basal gaangli, has persitant weakness right leg. Pt will need Cardioogy to Decide if she would beneifit from Anticoagulation due to her Stroke and paroxysmal Afib. Echo is pending. (4) TIA (transient ischemic attack) Status: Acute Comment: MRI showed no acutre infarct but has recent infarct. - Plan will continue abx for now -: per family her mentation is improving -: pt encouraged to ambulate * . Review of Systems - Review of Systems Respiratory: negative: Cough, Dry, Shortness of Breath, Hemoptysis, SOB with Excertion, Pleuritic Pain, Sputum, Wheezing Cardiovascular: negative: chest pain, palpitations, orthopnea, paroxysmal nocturnal dyspnea, edema, light headedness, other Gastrointestinal: negative: Nausea, Vomiting, Abdominal Pain, Diarrhea, Constipation, Melena, Hematochezia, Other - Medications/Allergies Allergies/Adverse Reactions: Allergies Allergy/AdvReac Type Severity Reaction Status Date / Time Sulfa (Sulfonamide Allergy Verified 07/06/17 04:01 Antibiotics) Medications: Current Medications Acetaminophen (Tylenol) 650 mg PO Q4H PRN PRN Reason: Headache/Fever/Mild Pain (1-3) Last Admin: 08/06/18 12:12 Dose: 650 mg Apixaban (Eliquis) 2.5 mg PO BID [facility] Last Admin: 08/06/18 09:05 Dose: 2.5 mg Aspirin (Ecotrin) 81 mg PO DAILY [facility] Last Admin: 08/06/18 09:04 Dose: 81 mg Atorvastatin Calcium (Lipitor) 20 mg PO DAILY [facility] Last Admin: 08/06/18 09:04 Dose: 20 mg Bisacodyl (Dulcolax) 10 mg [place] DAILYPRN PRN PRN Reason: Constipation Clonidine (Catapres) 0.2 mg PO BID PRN PRN Reason: SBP Greater Than 180 Last Admin: 08/05/18 23:55 Dose: 0.2 mg Diltiazem HCl (Cardizem Cd) 300 mg PO DAILY [facility] Last Admin: 08/06/18 09:05 Dose: 300 mg Famotidine (Pepcid) 20 mg PO BID [facility] Last Admin: 08/06/18 09:04 Dose: 20 mg Guaifenesin/Dextromethorphan (Robitussin Dm) 15 ml PO Q4H PRN PRN Reason: Cough Hydralazine HCl (Apresoline) 100 mg PO TID [facility] Last Admin: 08/06/18 09:04 Dose: 100 mg Ceftriaxone Sodium 1 gm/ (Sodium Chloride) 100 mls @ 200 mls/hr IVPB Q24HR [facility] Last Admin: 08/05/18 16:00 Dose: 100 mls Clindamycin Phosphate/Dextrose (600 mg/ Device) 50 mls @ 100 mls/hr IVPB Q8H [facility] Last Admin: 08/06/18 08:35 Dose: 50 mls Metoprolol Succinate (Toprol Xl) 50 mg PO BID [facility] Last Admin: 08/06/18 09:05 Dose: 50 mg Nitroglycerin (Nitrostat) 0.4 mg SL Q5MIN PRN PRN Reason: Chest Pain Ondansetron HCl (Zofran) 4 mg IVP Q6H PRN PRN Reason: Nausea/Vomiting Last Admin: 08/05/18 21:52 Dose: 4 mg Senna/Docusate Sodium (Senokot S) 2 tab PO BIDPRN PRN PRN Reason: Constipation Throat Lozenges (Cepastat Lozenges) 1 joaquin PO Q2H PRN PRN Reason: Sore Throat
[2018-08-06] MEDS: cefTRIAXone\\ROCEPHIN 1 GM in Sodium Chloride 0.9% 100 ML IVPB SCH (17:08)
[2018-08-06] MEDS: Ondansetron PF 4 MG/2 ML Vial IVP PRN (19:03)
[2018-08-06] MEDS: cloNIDine 0.2 MG TAB PO PRN (23:47)
[2018-08-07] MEDS ORDERED: hydrALAZINE 20 MG/ML VIAL SLOW IVP PRN (01:33)
[2018-08-07] MEDS: Ondansetron PF 4 MG/2 ML Vial IVP PRN (01:46)
[2018-08-07] MEDS: hydrALAZINE 25 MG TAB PO SCH ×3 (08:49→21:46)
[2018-08-07] MEDS: Apixaban 2.5 MG TAB PO SCH ×2 (08:49→21:47)
[2018-08-07] MEDS: Famotidine 20 MG TAB PO SCH ×2 (08:50→21:47)
[2018-08-07] MEDS: Diltiazem HCl CD 300 mg Capsule PO SCH (08:52)
[2018-08-07] MEDS: Atorvastatin Calcium 20 MG TAB PO SCH (08:55)
[2018-08-07] MEDS: Aspirin 81 mg Enteric Coated Tablet PO SCH (08:55)
[2018-08-07] MEDS: Clindamycin/D5W 600 MG in Premix Bag 1 BAG IVPB SCH ×2 (08:59→15:27)
[2018-08-07 11:11] LABS: #Eosinphils 0.1 thou/uL (0.0-0.7); #Lymphocytes 1.4 thou/uL (1.20-3.40); #Monocytes 0.9 thou/uL (0.11-0.59); #Neutrophils 9.5 thou/uL (1.40-6.50); %Basophils 0.1 % (0.0-1.0); %Eosinophils 0.7 % (0.0-10.0); %Lymphocytes 11.8 % (21.0-51.0); %Monocytes 7.7 % (0.0-10.0); %Neutrophils 79.6 % (42.0-75.0); Hemoglobin 10.8 g/dL (12.0-16.0); Mean Corpuscular HGB CONC 32.9 g/dL (32.0-36.0); Mean Corpuscular Volume 94.3 fL (78.0-98.0); Mean Platelet Volume 7.2 fL (7.4-10.4); Platelet Count 228 thou/uL (130-400); RBC Distribution Width 13.2 % (11.5-14.5); Red Blood Cell (RBC) Count 3.48 mill/uL (4.20-5.40); White Blood Cell (WBC) Count 11.9 thou/uL (4.8-10.8)
[2018-08-07 11:25] LABS: Anion Gap 16 mmol/L (10-20); BUN (Urea Nitrogen) 26 mg/dL (9.8-20.1); Calc. Creatinine Clearance 32 mL/min (70-130); Calcium 9.3 mg/dL (7.8-10.44); Carbon Dioxide 24 mmol/L (23-31); Chloride 104 mmol/L (98-107); Estimated GFR-MDRD 37; Glucose 100 mg/dL (83-110); Potassium 3.5 mmol/L (3.5-5.1); Sodium 140 mmol/L (136-145)
[2018-08-07] MEDS ORDERED: Calamine/Zinc Oxide 177 ML LOTION TP PRN (11:40)
--- NOTE | 2018-08-07 14:00 | PDOC.PN ---
- Subjective Encounter Start Date: 08/07/18 Encounter Start Time: 11:20 Subjective: pt up in bed wants to go home - Objective Resuscitation Status - Order Detail: 08/05/18 14:30 Resuscitation Status Routine Resuscitation Status: FULL: Full Resuscitation Discussed with: POA: Vital Signs & Weight: Vital Signs (12 hours) Temp Pulse Resp BP BP Pulse Ox 08/07/18 11:30 98.4 F 64 18 168/68 H 90 L 08/07/18 08:52 64 171/70 H 08/07/18 08:49 64 171/70 H 08/07/18 07:59 98.5 F 64 18 171/70 H 90 L 08/07/18 03:46 99.4 F 71 16 144/65 H 96 Weight Weight 136 lb 3.931 oz Result Diagrams: 08/07/18 10:46 08/07/18 10:46 Phys Exam - Physical Examination erythema has improved, small amount of swelling noted Neck: no nodes, no JVD, supple, full ROM Respiratory: no wheezing, no rales, no rhonchi, wheezing present, clear to auscultation bilateral Cardiovascular: RRR, no significant murmur, no rub, gallop, irregular Gastrointestinal: soft, non-tender, no distention, positive bowel sounds Dx/Plan (1) Facial cellulitis Code(s): L03.211 - CELLULITIS OF FACE Status: Acute (2) HTN (hypertension) Code(s): I10 - ESSENTIAL (PRIMARY) HYPERTENSION Status: Acute Comment: Well controlled, But Family says sometimes BP are not controlled at Home, need monitoring. (3) Paroxysmal A-fib Code(s): I48.0 - PAROXYSMAL ATRIAL FIBRILLATION Status: Acute Comment: PT is In and out of Afib, with a remote/ Recent h/o Stroke Left Basal gaangli, has persitant weakness right leg. Pt will need Cardioogy to Decide if she would beneifit from Anticoagulation due to her Stroke and paroxysmal Afib. Echo is pending. (4) TIA (transient ischemic attack) Status: Acute Comment: MRI showed no acutre infarct but has recent infarct. - Plan pt's erythema has improved, will continue abx for now -: pt wants to go home, she needs couple more days. * . Review of Systems - Review of Systems Respiratory: negative: Cough, Dry, Shortness of Breath, Hemoptysis, SOB with Excertion, Pleuritic Pain, Sputum, Wheezing Cardiovascular: negative: chest pain, palpitations, orthopnea, paroxysmal nocturnal dyspnea, edema, light headedness, other Gastrointestinal: negative: Nausea, Vomiting, Abdominal Pain, Diarrhea, Constipation, Melena, Hematochezia, Other - Medications/Allergies Allergies/Adverse Reactions: Allergies Allergy/AdvReac Type Severity Reaction Status Date / Time Sulfa (Sulfonamide Allergy Verified 07/06/17 04:01 Antibiotics) Medications: Current Medications Acetaminophen (Tylenol) 650 mg PO Q4H PRN PRN Reason: Headache/Fever/Mild Pain (1-3) Last Admin: 08/06/18 23:47 Dose: 650 mg Apixaban (Eliquis) 2.5 mg PO BID [facility] Last Admin: 08/07/18 08:49 Dose: 2.5 mg Aspirin (Ecotrin) 81 mg PO DAILY [facility] Last Admin: 08/07/18 08:55 Dose: Not Given Atorvastatin Calcium (Lipitor) 20 mg PO DAILY [facility] Last Admin: 08/07/18 08:55 Dose: Not Given Bisacodyl (Dulcolax) [address] DAILYPRN PRN PRN Reason: Constipation Calamine/Zinc Oxide (Calamine Lotion) 1 ml TP BIDPRN PRN PRN Reason: Itching Clonidine (Catapres) 0.2 mg PO BID PRN PRN Reason: SBP Greater Than 180 Last Admin: 08/06/18 23:47 Dose: 0.2 mg Diltiazem HCl (Cardizem Cd) 300 mg PO DAILY [facility] Last Admin: 08/07/18 08:52 Dose: 300 mg Famotidine (Pepcid) 20 mg PO BID [facility] Last Admin: 08/07/18 08:50 Dose: 20 mg Guaifenesin/Dextromethorphan (Robitussin Dm) 15 ml PO Q4H PRN PRN Reason: Cough Hydralazine HCl (Apresoline) 100 mg PO TID [facility] Last Admin: 08/07/18 08:49 Dose: 100 mg Hydralazine HCl (Apresoline) 10 mg SLOW IVP Q4H PRN PRN Reason: .SBP >180 Ceftriaxone Sodium 1 gm/ (Sodium Chloride) 100 mls @ 200 mls/hr IVPB Q24HR [facility] Last Admin: 08/06/18 17:08 Dose: 100 mls Clindamycin Phosphate/Dextrose (600 mg/ Device) 50 mls @ 100 mls/hr IVPB Q8H [facility] Last Admin: 08/07/18 08:59 Dose: 50 mls Metoprolol Succinate (Toprol Xl) 50 mg PO BID [facility] Last Admin: 08/07/18 08:50 Dose: 50 mg Nitroglycerin (Nitrostat) 0.4 mg SL Q5MIN PRN PRN Reason: Chest Pain Ondansetron HCl (Zofran) 4 mg IVP Q6H PRN PRN Reason: Nausea/Vomiting Last Admin: 08/07/18 01:46 Dose: 4 mg Senna/Docusate Sodium (Senokot S) 2 tab PO BIDPRN PRN PRN Reason: Constipation Throat Lozenges (Cepastat Lozenges) 1 joaquin PO Q2H PRN PRN Reason: Sore Throat
[2018-08-07] MEDS: cefTRIAXone\\ROCEPHIN 1 GM in Sodium Chloride 0.9% 100 ML IVPB SCH (15:26)
[2018-08-07] MEDS: Acetaminophen 325 MG TAB PO PRN (18:44)
[2018-08-08] MEDS: Clindamycin/D5W 600 MG in Premix Bag 1 BAG IVPB SCH ×2 (00:47→10:14)
[2018-08-08 05:25] LABS: Anion Gap 15 mmol/L (10-20); BUN (Urea Nitrogen) 24 mg/dL (9.8-20.1); Calc. Creatinine Clearance 33 mL/min (70-130); Calcium 9.2 mg/dL (7.8-10.44); Carbon Dioxide 24 mmol/L (23-31); Chloride 103 mmol/L (98-107); Estimated GFR-MDRD 39; Glucose 109 mg/dL (83-110); Potassium 3.2 mmol/L (3.5-5.1); Sodium 139 mmol/L (136-145)
[2018-08-08] MEDS: cloNIDine 0.2 MG TAB PO PRN (10:10)
[2018-08-08] MEDS: hydrALAZINE 25 MG TAB PO SCH ×3 (10:11→21:28)
[2018-08-08] MEDS: Famotidine 20 MG TAB PO SCH ×2 (10:12→21:28)
[2018-08-08] MEDS: Apixaban 2.5 MG TAB PO SCH ×2 (10:12→21:28)
[2018-08-08] MEDS: Diltiazem HCl CD 300 mg Capsule PO SCH (10:12)
[2018-08-08] MEDS: Aspirin 81 mg Enteric Coated Tablet PO SCH (10:14)
[2018-08-08] MEDS: Atorvastatin Calcium 20 MG TAB PO SCH (10:14)
--- NOTE | 2018-08-08 11:43 | PDOC.PN ---
- Subjective Encounter Start Date: 08/08/18 Encounter Start Time: 13:30 Subjective: Patient feeling better. Strength better. No fever. Mental status more -: clear. Did have significant swelling, itching under both eyes and bridge of -: nose yesterday, a bit better today. - Objective Resuscitation Status - Order Detail: 08/05/18 14:30 Resuscitation Status Routine Resuscitation Status: FULL: Full Resuscitation Discussed with: POA: SATNAM Reviewed: Yes Vital Signs & Weight: Vital Signs (12 hours) Temp Pulse Resp BP BP Pulse Ox 08/08/18 10:12 75 08/08/18 10:11 75 189/74 H 08/08/18 10:10 189/74 H 08/08/18 07:38 97.8 F 75 14 189/74 H 94 L 08/08/18 03:49 98.7 F 68 14 177/69 H 91 L 08/08/18 00:02 98.5 F 67 14 173/62 H 94 L Weight Weight 136 lb 3.931 oz I&O: 08/07/18 08/08/18 08/09/18 06:59 06:59 06:59 Intake Total 1330 Balance 1330 Result Diagrams: 08/07/18 10:46 08/08/18 04:10 Phys Exam - Physical Examination Constitutional: NAD HEENT: moist MMs edema under bilateral eyes, a bit tracking onto right nasal bridge Respiratory: no wheezing, no rales, no rhonchi Cardiovascular: RRR, no significant murmur Gastrointestinal: soft, positive bowel sounds Psychiatric: normal affect Dx/Plan (1) Facial cellulitis Code(s): L03.211 - CELLULITIS OF FACE Status: Acute Comment: on Rocephin and Clindamycin since 08/05/2018, switched to oral Clindamycin and Omnicef (2) Acute suppurative parotitis Code(s): K11.21 - ACUTE SIALOADENITIS Status: Acute (3) Sepsis Code(s): A41.9 - SEPSIS, UNSPECIFIED ORGANISM Status: Resolved Comment: Elevated WBC and fever to 101 on presentation to [place] ER, now resolved with fluids and antibiotics, blood cultures negative (4) CVA (cerebral vascular accident) Code(s): I63.9 - CEREBRAL INFARCTION, UNSPECIFIED Status: Chronic Comment: previous (5) HTN (hypertension) Code(s): I10 - ESSENTIAL (PRIMARY) HYPERTENSION Status: Chronic Qualifiers: Hypertension type: essential hypertension Qualified Code(s): I10 - Essential (primary) hypertension Comment: Well controlled, But Family says sometimes BP are not controlled at Home, need monitoring. (6) Paroxysmal A-fib Code(s): I48.0 - PAROXYSMAL ATRIAL FIBRILLATION Status: Chronic Comment: on ASA, low dose Eliquis - Plan cont current plan of care, continue antibiotics, PT/OT switch to oral antibiotics today, likely home tomorrow -: try Claritin for itching swelling under eyes * . - Discharge Day Encounter end time: 13:50
[2018-08-08] MEDS ORDERED: Potassium Chloride 20 MEQ TAB PO SCH (12:00)
[2018-08-08] MEDS ORDERED: Loratadine 10 MG TAB PO PRN (13:47)
[2018-08-08] MEDS: Clindamycin 150 MG CAP PO SCH ×2 (14:57→21:28)
[2018-08-08] MEDS: Ondansetron PF 4 MG/2 ML Vial IVP PRN ×2 (16:49→23:10)
[2018-08-08] MEDS: Cefdinir 300 MG CAP PO SCH (21:28)
[2018-08-09] MEDS: Clindamycin 150 MG CAP PO SCH ×2 (01:37→08:19)
[2018-08-09 05:33] LABS: #Basophils 0.1 thou/uL (0.0-0.2); #Eosinphils 0.2 thou/uL (0.0-0.7); #Lymphocytes 1.6 thou/uL (1.20-3.40); #Monocytes 0.8 thou/uL (0.11-0.59); #Neutrophils 5.1 thou/uL (1.40-6.50); %Basophils 0.7 % (0.0-1.0); %Eosinophils 2.2 % (0.0-10.0); %Lymphocytes 21.2 % (21.0-51.0); %Monocytes 9.8 % (0.0-10.0); %Neutrophils 66.1 % (42.0-75.0); Hemoglobin 10.6 g/dL (12.0-16.0); Mean Corpuscular HGB CONC 32.2 g/dL (32.0-36.0); Mean Corpuscular Hemoglobin 30.5 pg (27.0-31.0); Mean Corpuscular Volume 94.8 fL (78.0-98.0); Mean Platelet Volume 6.8 fL (7.4-10.4); Platelet Count 243 thou/uL (130-400); RBC Distribution Width 13.3 % (11.5-14.5); Red Blood Cell (RBC) Count 3.46 mill/uL (4.20-5.40); White Blood Cell (WBC) Count 7.7 thou/uL (4.8-10.8)
[2018-08-09 05:55] LABS: Anion Gap 12 mmol/L (10-20); BUN (Urea Nitrogen) 21 mg/dL (9.8-20.1); Calc. Creatinine Clearance 31 mL/min (70-130); Calcium 9.4 mg/dL (7.8-10.44); Carbon Dioxide 28 mmol/L (23-31); Chloride 102 mmol/L (98-107); Estimated GFR-MDRD 36; Glucose 100 mg/dL (83-110); Potassium 3.6 mmol/L (3.5-5.1); Sodium 138 mmol/L (136-145)
[2018-08-09 07:41] VITALS: TEMP 98.4
[2018-08-09] MEDS: Atorvastatin Calcium 20 MG TAB PO SCH (08:19)
[2018-08-09] MEDS: Aspirin 81 mg Enteric Coated Tablet PO SCH (08:19)
[2018-08-09] MEDS: cloNIDine 0.2 MG TAB PO PRN (08:20)
[2018-08-09] MEDS: Cefdinir 300 MG CAP PO SCH (08:20)
[2018-08-09] MEDS: hydrALAZINE 25 MG TAB PO SCH (08:20)
[2018-08-09] MEDS: Famotidine 20 MG TAB PO SCH (08:20)
[2018-08-09] MEDS: Ondansetron PF 4 MG/2 ML Vial IVP PRN (10:20)
[2018-08-09] MEDS: Apixaban 2.5 MG TAB PO SCH (10:21)
[2018-08-09] MEDS: Diltiazem HCl CD 300 mg Capsule PO SCH (10:21)
[2018-08-09 11:08] VITALS: BP 157/79
--- NOTE | 2018-08-09 12:17 | PRG ---
DATE OF SERVICE: 08/09/2018 SUBJECTIVE: Ms. Dimas was admitted to the hospital via emergency room for sudden onset of swelling around her right orbit and right parotid area. CT scan showed there was no significant abscess or mass. She has been on IV antibiotics since being admitted. The patient states that she is feeling much better. The swelling has reduced significantly. She says it only appears to be just under her right eye in the orbital area. There is no more pain or redness that she can see. OBJECTIVE: GENERAL: The patient is well developed, well nourished. She is in no acute distress. VITAL SIGNS: Stable. HEENT: Right parotid, there is no significant swelling. There is no pain with palpation of the area. Visual exam, inside of the mouth showed no purulent drainage from the parotid gland opening with milking of that right-sided gland. She was also not tender as I was able to milk that area. Only swelling visible is mild swelling under the right orbit, but there is no overlying skin redness. ASSESSMENT: Parotiditis. PLAN: 1. Continue with current IV antibiotic regimen per Medicine. 2. May follow up with Ears, Nose, and Throat upon discharge. Job ID: [id number]
--- NOTE | 2018-08-09 19:41 | DIS ---
DATE OF ADMISSION: 08/05/2018 DATE OF DISCHARGE: 08/09/2018 DISCHARGE DIAGNOSES: 1. Right parotitis with cellulitis, improved. 2. Sepsis secondary to #1, resolved. 3. Hypertension, stable. 4. Paroxysmal atrial fibrillation, on chronic anticoagulation with Eliquis. CONSULTATIONS: Dr. Diogenes Silverman with ENT Service. PERTINENT LABORATORY AND X-RAY FINDINGS: Creatinine ranged between 1.32 to 1.40. Estimated GFR ranged between 36 to 39. CBC showed a white blood cell count ranged between 7.7 to 11.9. Hemoglobin ranged between 9.2 to 10.8. Blood cultures x2 dated 08/05/2018, showed no growth at [address] of the facial bones dated 08/05/2018, showed soft tissue inflammatory changes in the right periorbital region adjacent to the right parotid gland. Findings suggestive of right parotitis. CT of the brain without contrast dated 08/05/2018, showed no acute intracranial process. HOSPITAL COURSE: This patient was initially admitted after presenting with facial cellulitis and suspicion for right parotitis. The patient was placed on IV Rocephin and clindamycin and monitored for clinical response. The patient was evaluated by the ENT Service with recommendations to continue IV antibiotic therapy and general supportive care. The patient developed edema in the periorbital region, treated with Claritin and continuation of antibiotic coverage. The patient transitioned to Omnicef and clindamycin, and tolerated without difficulty. The patient remained clinically stable overall during the hospital course with stable vital signs. I have examined the patient at the time of discharge and discussed followup instructions. The patient and verbalized understanding and agreement ready for discharge on 08/09/2018. DISCHARGE MEDICATIONS: 1. Eliquis 2.5 mg p.o. b.i.d. 2. Clonidine 0.2 mg p.o. b.i.d. p.r.n. 3. Diltiazem XT 300 mg p.o. daily. 4. Hydralazine 100 mg p.o. t.i.d. 5. Metoprolol succinate 50 mg p.o. b.i.d. 6. Omnicef 300 mg p.o. b.i.d. x7 days. 7. Clindamycin 300 mg p.o. q.i.d. x7 days. FOLLOWUP: The patient will follow up with Dr. Cassie Trevino within 7 days of discharge. CONDITION ON DISCHARGE: Stable. ACTIVITY: Ad-elian. DIET: Heart healthy. CODE STATUS: Full. DISPOSITION: Home on 08/09/2018. Job ID: [id number]
--- NOTE | 2018-08-10 08:01 | PQF ---
[employer] Gun Number Crystal Reports Winform ViewerVALERIY SKAGGS VINAYA KUMAR MD [id number] SURG B- [id number] CLINICAL DOCUMENTATION CLARIFICATION FORM: POST DISCHARGE Addendum to original discharge summary date: ____ Late entry note date: __ DATE: 08/10/2018 ATTN: JESSEE MOORE Please exercise your independent, professional judgment in responding to the clarification form. Clinical indicators are provided on the bottom of this form for your review Diagnosis: Sepsis Present on Admission (POA): [ x ] Yes [ ] No [ ] Unable to determine Coding guidelines require hospitals to identify whether a diagnosis was present on admission (POA) or not. To accurately assign the appropriate POA indicator, this information must be clearly documented within the medical record. CLINICAL INDICATORS - SIGNS / SYMPTOMS / LABS Right parotitis with facial [id number]-V&P. pg1, 08/05 Sepsis sec to Right parotitis with facial cellulitis-DS, pg1, 08/09 Temp:99.1-H&P. pg1, 08/05 WBC : 14 -H&P. pg1, 08/05 Elevated WBC and fever to 101 on presentation to [place] ER, now resolved- Hosp PN, 08/08 RISK FACTORS: Facial cellulitis-PN, pg2, 08/08 Acute supuurative parotitis-PN, 08/08 TREATMENT: Fluids and antibiotics--Hosp PN, 08/08 IV.Rocephin, Clindamycin.-Medications (This form is maintained as a part of the permanent medical record) [employer] Number [employer] Winform View[employer] 2014 [email or web address]. All Rights Reserved Josh Sarkar [not provided] [not provided] MTDD
== END 2018-08-09 12:10 | disposition home or self-care (01) | DRG 872 ==
LOC: ERS 12:04 → SURG B 15:14
PROVIDERS: ADMIT Internal Medicine; ATTEND Internal Medicine
DX: A41.9 Sepsis, unspecified organism (principal); L03.211 Cellulitis of face; K11.21 Acute sialoadenitis; E78.5 Hyperlipidemia, unspecified; E78.00 Pure hypercholesterolemia, unspecified; I48.0 Paroxysmal atrial fibrillation; I12.9 Hypertensive chronic kidney disease with stage 1 through stage 4 chronic kidney disease, or unspecified chronic kidney disease; N18.3 Chronic kidney disease, stage 3 (moderate); I71.4 Abdominal aortic aneurysm, without rupture; Z86.73 Personal history of transient ischemic attack (TIA), and cerebral infarction without residual deficits; Z98.42 Cataract extraction status, left eye; Z98.41 Cataract extraction status, right eye; Z98.890 Other specified postprocedural states; Z88.2 Allergy status to sulfonamides; Z79.01 Long term (current) use of anticoagulants; Z87.891 Personal history of nicotine dependence
CPT/HCPCS: 36415; 70487; 80048; 85025; 90471; 90670; 94760; G0009; J0360; J0696; J2405; J3490

== ENCOUNTER 2018-11-08 12:44 | Inpatient (IN) | payer MEDICARE ==
[2018-11-08] MEDS ORDERED: Ondansetron PF 4 MG/2 ML Vial ONE ×2 (13:14→17:03)
[2018-11-08] MEDS ORDERED: Acetaminophen 325 MG TAB PO PRN (16:27)
[2018-11-08] MEDS ORDERED: Ondansetron ODT 4 MG TAB PO PRN (16:27)
[2018-11-08] MEDS ORDERED: niCARdipine 25 MG in Sodium Chloride 0.9% 250 ML 240 ML IVPB SCH (16:30)
[2018-11-08] MEDS ORDERED: niCARdipine 20MG In NaCl 20 MG/200 ML BAG ONE (16:34)
[2018-11-08 17:51] VITALS: BMI 23.0
[2018-11-08] MEDS: niCARdipine 50 MG in Sodium Chloride 0.9% 250 ML 230 ML IVPB SCH (18:55)
[2018-11-08] MEDS: Ondansetron PF 4 MG/2 ML Vial IVP PRN (19:56)
--- NOTE | 2018-11-08 21:58 | ULT ---
US Abdominal: 11/08/2018 4:27 PM CLINICAL HISTORY: Nausea.. History of abdominal aortic aneurysm. Acute kidney injury. STUDY: Complete abdominal ultrasound COMPARISON: None. FINDINGS: Liver: Size: Normal. Echogenicity: Normal. Contour: Smooth. Mass: None. Common bile duct: 6 mm Gallbladder: Cholelithiasis. Pancreas: Not well visualized. Inferior vena cava: Normal in caliber Aorta: Enlarged measuring 4.4 cm in greatest diameter. Spleen: No focal lesions. Spleen measuring 8.5 cm in length. Right kidney: No pelvicalyceal dilatation. Right kidney measuring 8.3 cm in length. Left kidney: No pelvicalyceal dilatation. Atrophic and contains multiple small cysts. The largest emelina sures 1.1 cm in size. Left kidney measuring 6.7 cm in length. IMPRESSION: 1. Cholelithiasis 2. Atrophic left kidney containing multiple cysts 3. Abdominal aortic aneurysm
--- NOTE | 2018-11-08 22:26 | HP ---
The patient is currently in between physicians for primary care. She had been seeing Dr. Trevino. Her appliquer is Dr. Isaac. CHIEF COMPLAINT: My blood pressure is "bertin high." HISTORY OF PRESENT ILLNESS: Ms. Dimas is a pleasant 83-year-old female, who has a history of hypertension as well as abdominal aortic aneurysm. She was in her usual state of health until yesterday when she says that she started feeling a bit sick to her stomach. She was nauseated, but was not having any vomiting. In the morning, she continued to have some nausea, but she also has complaints of a headache which was fairly severe and she noted it on the right side of her head radiating to the back of her head and into her neck. Her typically checks her blood pressure every morning and they got up at around 6:00 a.m. and checked the blood pressure and it was 245/87. He gave her a clonidine, but says it only went down just a few points. After this, they made an appointment at the clinic at 9:15 in the morning. When they arrived at the clinic, the blood pressure was still high and they were referred to the emergency room in [place] for further evaluation. At the CT scan in [place], it was negative for stroke or bleed and she is being transferred here for further evaluation. She denies having any chest pain. No shortness of breath, but she does admit to feeling dizzy off and on for the past 2 or 3 days and her says that she has had some weakness in her right lower extremity and where she has not been able to lift it recently. She denies any shortness of breath. No abdominal pain. No diarrhea. No fevers, no chills, and she does admit to her ears hurting at times, but no other complaints. She says that she has been taking her medications as usual except for this morning due to vomiting. She denies any extreme dietary changes. REVIEW OF SYSTEMS: CONSTITUTIONAL: There has been no fevers or chills, no night sweats. No weight loss. HEENT: She did mention the headache on the right side of her head as previously mentioned. No visual changes. In fact, she recently had a Lasix surgery done. No sore throat. No rhinorrhea. No neck pain. No adenopathy. PULMONARY: No hemoptysis. No cough. No wheezing. CARDIOVASCULAR: She denies any chest pain. No shortness of breath. No PND. No orthopnea. No lower extremity edema. GASTROINTESTINAL: Is as history of present illness. She has some nausea, not really related to eating. No vomiting. No hemoptysis. No melena. No change in bowels. No diarrhea. GENITOURINARY: She admits to some urinary frequency, but no hematuria, no hesitancy. MUSCULOSKELETAL: She complains of the weakness in both lower extremities and in her left, no muscle pains or joint pains. NEUROLOGIC: She says that she had a "stroke-like" symptoms about a year ago and since then she has been weak on the left side, which never went away, but the MRI at that time was negative. SKIN AND INTEGUMENT: No skin changes. No rash. PSYCHIATRIC: No symptoms of anxiety or depression. PAST MEDICAL HISTORY: Significant for chronic kidney disease stage 3, transient ischemic attack, atrial fibrillation, abdominal aortic aneurysm, hypertension. PAST SURGICAL HISTORY: She has had cataracts and knee surgery on the right. ALLERGIES: TO SULFA, WHICH CAUSES PROBLEMS WITH HER KIDNEYS. SOCIAL HISTORY: She is . She is a nonsmoker, nondrinker. She would like to be a full code. FAMILY HISTORY: Significant for cerebrovascular disease in her father. CURRENT MEDICATIONS: She says that they are the same as her previous admission with just a few changes and these include; 1. Eliquis 2.5 mg twice daily. 2. Clonidine 0.2 mg as needed. 3. Diltiazem XT 300 mg daily. 4. Hydralazine 100 mg t.i.d. 5. Metoprolol succinate 50 mg twice daily. 6. Omnicef 300 mg twice daily for 7 days. 7. Clindamycin 300 mg twice a day for 7 days and these should be discontinued. PHYSICAL EXAMINATION: GENERAL: She is alert and oriented. She appears to be in no acute distress. She is well developed and well nourished. VITAL SIGNS: Blood pressure currently is about 169/60, blood pressure was 182/73, heart rate 96, respiratory rate of 16, and she is afebrile. HEENT: Pupils are equal, round, and reactive. Extraocular muscles are intact. Her sclerae are anicteric. Throat, no erythema, no exudates. NECK: No adenopathy. She did have bilateral bruits. LUNGS: Clear to auscultation. There is no wheezing, no rales, no rhonchi. CARDIOVASCULAR: She has a normal S1 and S2. There is no S3 or S4. No murmurs, clicks, no rubs. LUNGS: Clear to auscultation. No wheezing. No rales or rhonchi. CARDIOVASCULAR: She had a normal S1, S2. I did not appreciate an S3 or S4. No murmurs, clicks, or rubs. ABDOMEN: Obese, it is soft. She did have some mid upper right quadrant tenderness. There is no rebound, no guarding. Leon sign was negative. She has positive bowel sounds. No evidence of any organomegaly. Her liver span was approximately 8 cm, percussed. EXTREMITIES: She has trace 1 to 2+ edema bilaterally. LOWER EXTREMITIES: Her muscle strength, she is able to lift both of her arms and legs against gravity and against opposition. However on her legs, her right lower extremity is weak. She is able to move it, but not against resistance. However, her reflexes are 2+ and symmetric in both the patellar and brachioradialis. She has fairly good supervisor [employer] strength and her cranial nerves 2 through 12 are intact. SKIN AND INTEGUMENT: There were no significant skin changes. No rash. LABORATORY DATA AND IMAGING: CBC: White blood cell count is 12.9, hemoglobin 10.4, hematocrit is 32.6, and platelet count is 253. INR is 1.2. Sodium 139, potassium 4.2, chloride is 101, CO2 is 24, BUN of 39, creatinine 2.64, glucose is 144. EKG is currently being performed. She had a CT scan of the brain showing no acute intracranial abnormalities. ASSESSMENT: This is a pleasant 83-year-old female, who presents with extremely elevated blood pressure. She also has headache and some neck pain associated with this. CT scan of the brain was negative for bleed or new stroke. However, she does continue to have some weakness on the right lower extremity. It is hard to determine whether or not this is due to effort or whether there is a true muscle weakness there. She will be admitted to the ICU due to the neurological signs and elevated blood pressure. We will continue the Cardene drip. We will need to reconcile and restart her medications and hopefully titrate the Cardene drip off and likely will need adjustments on her home medications. Since there is no evidence of any bleed, we will continue Eliquis for now. Nausea and right upper quadrant tenderness: We will get an abdominal ultrasound and repeat her LFTs in the a.m. and further recommendations will be to follow. 1. Chronic atrial fibrillation. Her heart rate is controlled and again we will continue Eliquis for stroke prevention and diltiazem for her heart rate control. 2. Acute kidney injury. She appears to have [id number] kidney failure. This could be due to elevated blood pressure. It could also be due to prerenal azotemia given that she has not been eating well and has had the nausea for a few days. We will go ahead and gently hydrate her and recheck her renal function in the a.m. If it is not significantly improved, then likely will need to consult Nephrology for further recommendations. Job ID: [id number]
[2018-11-09] MEDS: Ondansetron PF 4 MG/2 ML Vial IVP PRN ×2 (03:24→07:32)
[2018-11-09] MEDS: niCARdipine 50 MG in Sodium Chloride 0.9% 250 ML 230 ML IVPB SCH (04:18)
[2018-11-09 05:08] LABS: #Eosinphils 0.1 thou/uL (0.0-0.7); #Lymphocytes 1.6 thou/uL (1.20-3.40); #Monocytes 1.1 thou/uL (0.11-0.59); %Basophils 0.3 % (0.0-1.0); %Eosinophils 0.4 % (0.0-10.0); %Lymphocytes 11.6 % (21.0-51.0); %Neutrophils 79.7 % (42.0-75.0); Hemoglobin 10.3 g/dL (12.0-16.0); Mean Corpuscular HGB CONC 32.3 g/dL (32.0-36.0); Mean Corpuscular Hemoglobin 29.7 pg (27.0-31.0); Mean Platelet Volume 6.8 fL (7.4-10.4); Platelet Count 299 thou/uL (130-400); RBC Distribution Width 13.6 % (11.5-14.5); Red Blood Cell (RBC) Count 3.45 mill/uL (4.20-5.40); White Blood Cell (WBC) Count 13.8 thou/uL (4.8-10.8)
[2018-11-09 05:35] LABS: ALT (SGPT) Less than 7 U/L (8-55); AST (SGOT) 11 U/L (5-34); Albumin 4.2 g/dL (3.4-4.8); Alkaline Phosphatase 66 U/L (40-150); Anion Gap 19 mmol/L (10-20); BUN (Urea Nitrogen) 41 mg/dL (9.8-20.1); Bilirubin, Direct 0.1 mg/dL (0.1-0.3); Bilirubin, Total 0.2 mg/dL (0.2-1.2); Calc. Creatinine Clearance 15 mL/min (70-130); Carbon Dioxide 20 mmol/L (23-31); Chloride 101 mmol/L (98-107); Estimated GFR-MDRD 17; Glucose 105 mg/dL (83-110); Potassium 3.9 mmol/L (3.5-5.1); Protein, Total 7.6 g/dL (6.0-8.3); Sodium 136 mmol/L (136-145)
[2018-11-09] MEDS ORDERED: cloNIDine 0.2 MG TAB PO PRN (08:37)
[2018-11-09] MEDS ORDERED: Sodium Chloride 0.9% 1,000 ML IV SCH (08:45)
[2018-11-09] MEDS ORDERED: Apixaban 2.5 MG TAB PO SCH (09:00)
[2018-11-09] MEDS: cefTRIAXone\\ROCEPHIN 1 GM in Sodium Chloride 0.9% 100 ML IVPB SCH (09:07)
[2018-11-09] MEDS: hydrALAZINE 25 MG TAB PO SCH ×3 (09:08→20:36)
[2018-11-09] MEDS: Enoxaparin Sodium 30 MG/0.3 ML SYRINGE SC SCH ×2 (09:08→20:35)
[2018-11-09] MEDS: Saccharomyces boulardii 250 MG CAP PO SCH (09:08)
[2018-11-09] MEDS: metroNIDAZOLE 500 MG in Premix Bag 1 BAG IVPB SCH ×2 (09:09→16:51)
--- NOTE | 2018-11-09 09:42 | RAD ---
XR Chest 1 View Portable History: Pneumonia Comparison: Radiograph August 05, 2018 Findings: Abnormal fullness of the right hilum and right paratracheal soft tissues although the patie nt is rotated to the left. Heart size mildly prominent. Mild pulmonary venous congestion. No pneumothorax. Loop recorder device projects over the left hemithorax. No acute osseous abnormality. Subacromial enthesophyte on the right narrowing the subacromial space. Impression: 1. Abnormal fullness of the right hilum and right paratracheal soft tissues could reflect fullness of the vascular pedicle although nonemergent CT chest recommended. 2. Cardiomegaly and mild pulmonary venous congestion.
[2018-11-09] MEDS: Diltiazem HCl CD 300 mg Capsule PO SCH (09:44)
--- NOTE | 2018-11-09 11:12 | CON ---
DATE OF CONSULTATION: 11/09/2018 CONSULTING PHYSICIAN: Ty Hutchison MD. REASON FOR CONSULTATION: Hypertensive emergency. HISTORY OF PRESENT ILLNESS: Ms. Dimas is an 83-year-old female, who went to routine clinic appointment yesterday with nausea. She was noted to have a severely elevated blood pressure with a systolic around 245. She was subsequently sent to the ER because of some questionable neurologic findings on the right and elevated creatinine. She was placed on a Cardene drip for management of a hypertensive emergency. Her nausea has now dissipated and she has no acute complaints. PAST MEDICAL HISTORY: 1. Hypertension. 2. Chronic kidney disease stage 3. 3. Transient ischemic attack. 4. Paroxysmal atrial fibrillation. 5. Abdominal aortic aneurysm. PAST SURGICAL HISTORY: Cataract surgery. She has also had right knee surgery. ALLERGIES: SULFA. SOCIAL HISTORY: Formerly smoked. Does not consume alcohol. Does not use illicit drugs. FAMILY MEDICAL HISTORY: Remarkable for stroke. MEDICATIONS: Prior to the admission, 1. Eliquis 2.5 mg twice daily. 2. Clonidine 0.2 mg as needed. 3. Diltiazem XT 300 mg daily. 4. Hydralazine 100 mg t.i.d. 5. Metoprolol 50 mg twice daily. 6. Omnicef 300 mg for 7 days. 7. Clindamycin 300 mg twice daily for 7 days. REVIEW OF SYSTEMS: Denies headache or double vision. No fever, chills, nausea, vomiting, chest pain, hemoptysis, melena, hematochezia, hematuria, or dysuria. PHYSICAL EXAMINATION: VITAL SIGNS: Temperature 97.7, pulse 99, blood pressure 171/64, O2 saturation in the low 90s on room air. GENERAL: She is awake, alert, in no distress. HEENT: Pupils react. Sclerae anicteric. Oropharynx clear. NECK: Bilateral carotid bruits, harsher on the left than right. CARDIAC: S1 and S2 regular with 2/6 systolic murmur at the left sternal border. LUNGS: She has some inspiratory crackles at the left base, fairly clear at the right base. ABDOMEN: Soft, nontender. EXTREMITIES: No clubbing, cyanosis, or edema. IMAGING STUDIES: Head CT showed small vessel disease. No intracranial hemorrhage. LABORATORY DATA: White blood cell count 13.8, hematocrit 31.8, and platelet count 229. Sodium 136, potassium 3.9, chloride 101, CO2 of 20, BUN 41, creatinine 2.7, and glucose 105. ASSESSMENT: 1. Hypertensive emergency. 2. Bilateral carotid bruits. 3. Abdominal aortic aneurysm. 4. Slightly elevated white count with some crackles in left lower base. PLAN: I am going to go ahead and check a chest x-ray to rule out pneumonia. She has been started on oral medications. Hopefully, the drip can be weaned off in the next several hours. If her x-ray looks like pneumonitis, then we will start on antibiotics. Job ID: [id number]
--- NOTE | 2018-11-09 14:18 | CON ---
DATE OF CONSULTATION: 11/09/2018 CONSULTING PHYSICIAN: Ty Hutchison MD REASON FOR CONSULT: Acute kidney injury. REASON FOR ADMISSION: Not feeling well. HISTORY OF PRESENT ILLNESS: An 83-year-old female with history of CKD, solitary kidney, TIA, hypertension, came to the hospital not feeling well and was found to have elevated creatinine. Her creatinine is 2.7, from her baseline of 1.3, 1.4. Nephrology consulted. The patient also was found to be hypertensive, which is getting better. No nausea or vomiting. The patient is not able to give much history. No family members available. No chest pain or palpitation. No fever or chills reported. PAST MEDICAL HISTORY: Positive for CKD stage 3, solitary kidney, TIA, atrial fibrillation, AAA, and hypertension. PAST SURGICAL HISTORY: Cataract and knee surgery. HOME MEDICATIONS: 1. Eliquis. 2. Clonidine. 3. Diltiazem. 4. Hydralazine. 5. Metoprolol. 6. Omnicef. 7. Clindamycin. ALLERGIES: TO SULFA. SOCIAL HISTORY: No smoking, alcohol, or drugs. FAMILY HISTORY: No history of kidney disease. REVIEW OF SYSTEMS: CONSTITUTIONAL: Negative for weight loss or gain, ability to conduct usual activities. SKIN: Negative for rash, itching. EYES: Negative for double vision, pain. ENT/MOUTH: Negative for nose bleeding, neck stiffness, pain, tenderness. CARDIOVASCULAR: Negative for palpitations, dyspnea on exertion, orthopnea. RESPIRATORY: Negative for shortness of breath, wheezing, cough, hemoptysis, fever or night sweats. GASTROINTESTINAL: Negative for poor appetite, abdominal pain, heartburn, nausea, vomiting, constipation, or diarrhea. GENITOURINARY: Negative for urgency, frequency, dysuria, nocturia. MUSCULOSKELETAL: Negative for pain, swelling. NEUROLOGIC/PSYCHIATRIC: Negative for anxiety, depression. ALLERGY/IMMUNOLOGIC: Negative for skin rash, bleeding tendency. PHYSICAL EXAMINATION: GENERAL: This is a thin-built female, in no apparent distress. VITAL SIGNS: Temperature 98.0, pulse 93, respiratory rate 18, blood pressure . HEENT: Atraumatic, normocephalic. Oral mucosa moist. NECK: Supple. CV: S1 and S2. Rate and rhythm regular. RESPIRATORY: Clear. GASTROINTESTINAL: Abdomen is soft. MUSCULOSKELETAL: 1+ edema. DERMATOLOGIC: No skin rash. NEUROLOGIC: Alert and awake. PSYCHIATRIC: Normal mood and affect. LABORATORY DATA: Hemoglobin is 10.3, potassium 3.9, BUN is 41, and creatinine is 2.7. Abdominal ultrasound with left atrophic kidney and multiple cysts. Right kidney is small too. ASSESSMENT AND PLAN: 1. Acute kidney injury on chronic kidney disease stage 3. Agree with hydration. Reduce IV fluids to 75 mL/hr. 2. Right small kidney with left atrophic kidney. 3. Edema, controlled. 4. Hypertension, titrate medication. 5. Anemia of chronic disease. 6. No acute indication for dialysis. Continue hydration. Avoid nephrotoxins. Renally dose all medications. We will follow. Medication list reviewed and we will reduce NS to 75 mL/hr. Continue antibiotics for now. We will follow. Thank you for the consult. Job ID: [id number]
--- NOTE | 2018-11-09 16:01 | PDOC.HOSPP ---
- Subjective Encounter Date: 11/09/18 Encounter Time: 11:00 Subjective: Ms. Dimas was seen today in follow-up of hypertensive urgency as well as nausea and vomiting. She continues to have low grade nausea, and does not want to eat. she says she has regained the strength in her right upper extremity, and right leg. - Objective Vital Signs & Weight: Vital Signs (12 hours) Temp Pulse Pulse Pulse BP BP BP 11/09/18 12:50 98.0 F 11/09/18 11:35 95 96 171/64 H 174/62 H 11/09/18 08:10 95 96 171/64 H 170/59 H 171/49 H 11/09/18 07:00 97.7 F 11/09/18 05:00 98.8 F Pulse Ox Pulse Ox Pulse Ox 11/09/18 12:50 11/09/18 11:35 95 11/09/18 08:10 93 L 93 L 11/09/18 07:00 11/09/18 05:00 Weight Admit Weight 125 lb Weight 125 lb 14.143 oz Most Recent Monitor Data Heart Rate from ECG 89 NIBP 160/61 NIBP BP-Mean 94 Respiration from ECG 20 SpO2 94 I&O: 11/08/18 11/09/18 11/10/18 06:59 06:59 06:59 Intake Total 274 Output Total 100 550 Balance 174 -550 Result Diagrams: 11/09/18 04:43 11/09/18 04:43 Hospitalist ROS - Medication Medications: Active Medications Generic Name Dose Route Start Last Admin Trade Name Freq PRN Reason Stop Dose Admin Diltiazem HCl 300 mg 11/09/18 09:00 11/09/18 09:44 Cardizem Cd PO 300 mg DAILY DANY Administration Enoxaparin Sodium 30 mg 11/09/18 09:00 11/09/18 09:08 Lovenox SC 30 mg 0900,2100 DANY Administration Hydralazine HCl 100 mg 11/09/18 09:00 11/09/18 14:25 Apresoline PO 100 mg TID DANY Administration Nicardipine HCl 50 mg/ Sodium 250 mls @ 0 mls/hr 11/08/18 17:15 11/09/18 04: 18 Chloride IVPB 250 mls INF DANY Administration Protocol Titrate Ceftriaxone Sodium 1 gm/ 100 mls @ 200 mls/hr 11/09/18 09:00 11/09/18 09:07 Sodium Chloride IVPB 100 mls Q24HR DANY Administration Metronidazole 500 mg/ Device 100 mls @ 100 mls/hr 11/09/18 10:00 11/09/18 09: 09 IVPB 100 mls 0200,1000,1800 DANY Administration Metoprolol Succinate 50 mg 11/09/18 09:00 11/09/18 09:08 Toprol Xl PO 50 mg BID DANY Administration Ondansetron HCl 4 mg 11/08/18 16:27 11/09/18 07:32 Zofran IVP 4 mg Q6H PRN Administration Nausea/Vomiting Saccharomyces Boulardii 250 mg 11/09/18 09:00 11/09/18 09:08 Florastor PO 250 mg DAILY DANY Administration - Exam Eye: PERRL, anicteric sclera Heart: RRR, no murmur, no gallops, no rubs, normal peripheral pulses Respiratory: CTAB (with the exception of some coarse breath sounds bilaterally) , no wheezes, no rales, no ronchi, normal chest expansion Gastrointestinal: soft, non-tender, non-distended, normal bowel sounds, no palpable masses, no hepatomegaly, no splenomegaly Extremities: no cyanosis, no edema Hosp A/P (1) Hypertensive crisis Code(s): I16.9 - HYPERTENSIVE CRISIS, UNSPECIFIED Status: Acute (2) Cholelithiasis Code(s): K80.20 - CALCULUS OF GALLBLADDER W/O CHOLECYSTITIS W/O OBSTRUCTION Status: Acute (3) HTN (hypertension) Code(s): I10 - ESSENTIAL (PRIMARY) HYPERTENSION Status: Chronic Qualifiers: Hypertension type: essential hypertension Qualified Code(s): I10 - Essential (primary) hypertension (4) Paroxysmal A-fib Code(s): I48.0 - PAROXYSMAL ATRIAL FIBRILLATION Status: Chronic (5) Chronic anticoagulation Code(s): Z79.01 - PEOPLE GREETER (CURRENT) USE OF ANTICOAGULANTS Status: Chronic - Plan * Hypertensive crisis- will continue to wean the Cardizem drip, and re-start her home medications * Nausea- she also has been found to have cholelithiasis- will consult General surgery for evaluation * Should she require surgery- will also consult Cardiology * Acute kidney injury- likely from volume depletion- IV fluids- and consult Nephrology * AFIB- her heart rate has been stable- will hold Eliquis for now, and place on the equivalent dose of Lovenox, in case she need surgery
[2018-11-09] MEDS: Sodium Chloride 0.9% 1,000 ML IV SCH ×2 (16:48→20:38)
--- NOTE | 2018-11-09 22:29 | CON ---
DATE OF CONSULTATION: HISTORY OF PRESENT ILLNESS: Marian Dimas is an 83-year-old female with dementia, who lives at home with her . The patient is full code. The patient's daughters are present. The patient has progressive dementia. She is ambulatory with assistance with a walker at home. Her cares for her. Family reports the patient has been complaining of "knots" in her stomach, abdominal pain and nausea, and not eating well. Ultrasound obtained this hospitalization revealed gallstones with normal bowel caliber. Her liver function tests are normal. The patient was admitted for Cardene drip for hypertensive crisis, this has improved now, she has been transferred to the floor. I have had a lengthy discussion with the patient's daughters regarding cholecystectomy, risk of infection, bleeding, reoperation, DVT, stroke, myocardial infarction, etc. I have talked to them about code status, which we will address with the patient's at home. I have told her that certainly from what they described, she can be having symptomatic gallstones and cholecystectomy would improve her quality of life, but I cannot guarantee her appetite would return as her dementia may be playing a part of that. The family will discuss it and plan will be for laparoscopic cholecystectomy tomorrow unless the family decides against that. ALLERGIES: SULFA. SOCIAL HISTORY: Tobacco abuse. Cessation 10 years. Alcohol, none. MEDICATIONS: 1. Hydralazine. 2. Clonidine. 3. Nitroglycerin. 4. Metoprolol. 5. Diltiazem. 6. Eliquis, which has been held since admission. 7. She is on ceftriaxone currently. PAST SURGICAL HISTORY: Noncontributory. PAST MEDICAL HISTORY: Hypertension. The patient is retired housewife. She has dementia as noted above. PHYSICAL EXAMINATION: VITAL SIGNS: 5 foot, 225 pounds, 153/85, 89, respiratory rate 20. HEAD, EAR, EYES, NOSE, AND THROAT: Unremarkable. LUNGS: Clear to auscultation. CARDIAC: Rhythm without murmur or gallop. ABDOMEN: Soft, nontender. EXTREMITIES: Unremarkable. LABORATORY DATA: BUN 41, creatinine 2.71, sodium 136, hemoglobin 10, white count 13.3. Cardiac stress test June of 2017, normal. Echocardiogram June 2017, normal. ASSESSMENT AND PLAN: 1. Symptomatic cholelithiasis. Would recommend laparoscopic cholecystectomy, but the family declines and wants only comfort measures that would be reasonable to. We will tentatively plan laparoscopic cholecystectomy tomorrow. Risks and benefits and questions discussed with the family. 2. Chronic kidney disease. 3. Anticoagulation for atrial fibrillation. 4. Atrial fibrillation. 5. Anticoagulation held the last two days. Should decide to proceed with cholecystectomy tomorrow. Job ID: [id number]
[2018-11-10] MEDS: metroNIDAZOLE 500 MG in Premix Bag 1 BAG IVPB SCH ×2 (01:16→09:17)
[2018-11-10] MEDS: Sodium Chloride 0.9% 1,000 ML IV SCH ×3 (03:20→21:42)
[2018-11-10 05:10] LABS: #Eosinphils 0.1 thou/uL (0.0-0.7); #Lymphocytes 0.9 thou/uL (1.20-3.40); %Basophils 0.1 % (0.0-1.0); %Eosinophils 0.6 % (0.0-10.0); %Lymphocytes 5.2 % (21.0-51.0); %Monocytes 5.4 % (0.0-10.0); %Neutrophils 88.8 % (42.0-75.0); Hemoglobin 10.6 g/dL (12.0-16.0); Mean Corpuscular HGB CONC 33.5 g/dL (32.0-36.0); Mean Corpuscular Hemoglobin 30.4 pg (27.0-31.0); Mean Platelet Volume 7.1 fL (7.4-10.4); Platelet Count 327 thou/uL (130-400); RBC Distribution Width 13.6 % (11.5-14.5); Red Blood Cell (RBC) Count 3.48 mill/uL (4.20-5.40)
[2018-11-10 05:30] LABS: Anion Gap 21 mmol/L (10-20); BUN (Urea Nitrogen) 49 mg/dL (9.8-20.1); Calc. Creatinine Clearance 14 mL/min (70-130); Calcium 8.9 mg/dL (7.8-10.44); Carbon Dioxide 18 mmol/L (23-31); Chloride 104 mmol/L (98-107); Estimated GFR-MDRD 16; Glucose 109 mg/dL (83-110); Potassium 4.1 mmol/L (3.5-5.1); Sodium 139 mmol/L (136-145)
[2018-11-10] MEDS: hydrALAZINE 25 MG TAB PO SCH ×3 (09:14→20:26)
[2018-11-10] MEDS: Diltiazem HCl CD 300 mg Capsule PO SCH (09:15)
[2018-11-10] MEDS: Enoxaparin Sodium 30 MG/0.3 ML SYRINGE SC SCH ×2 (09:16→20:27)
[2018-11-10] MEDS: Saccharomyces boulardii 250 MG CAP PO SCH (09:16)
[2018-11-10] MEDS: cefTRIAXone\\ROCEPHIN 1 GM in Sodium Chloride 0.9% 100 ML IVPB SCH (09:18)
--- NOTE | 2018-11-10 10:19 | PRG ---
DATE OF SERVICE: 11/10/2018 SUBJECTIVE: Marian Dimas today has discussed with her family. The family has conferred with the patient's . Family consensus is that they do not want surgery and only want comfort measures. I had discussed with the daughters yesterday and while I was in the room, the patient was noncommunicative. I discussed with the daughters risks of laparoscopic cholecystectomy and discussing the fact that they could be causing the pain that she had been complaining of at home and could cause her nausea and vomiting. I talked to them about the risks of operation, although that she should do well with the operation. I have also discussed with them reminding them that last year in June 2017 while in the hospital, she had a nuclear cardiac stress test and echocardiogram that were unremarkable. The patient has atrial fibrillation, has been on Eliquis, which has been held since she has been in the hospital. I told them that laparoscopic cholecystectomy carries very little risk, but there are nonetheless risks disclosed infection, bleeding, reoperation, biliary and visceral injury, stroke, myocardial infarction, although those risks are low. DISCUSSION: The family has discussed with the patient's and the patient, and her family's decision is that she not have surgery and will be given comfort measures only. At this point, we will resume her diet. Family does not have any other questions. I will see her as needed. Please call if necessary for any change of opinion. Job ID: [id number]
--- NOTE | 2018-11-10 13:22 | CON ---
DATE OF CONSULTATION: REASON FOR CONSULTATION: Preoperative clearance. HISTORY OF PRESENT ILLNESS: Ms. Dimas is an 83-year-old woman, who I have seen and evaluated in the past. I received a consult for preop clearance. She has a history of paroxysmal atrial fibrillation. No current complaints of chest pain, pressure, shortness of breath, or associated symptoms. She does have a history of TIA. She has also been placed on Eliquis in the past. PAST MEDICAL HISTORY: Hypertension, paroxysmal atrial fibrillation, previous TIA, and chronic kidney disease. MEDICATIONS: Include; 1. P.r.n. nitroglycerin. 2. Cardizem. 3. Hydralazine. 4. Eliquis. 5. Clonidine. 6. Toprol. PAST SURGICAL HISTORY: LINQ placement and right knee surgery. FAMILY HISTORY: Negative for CAD. SOCIAL HISTORY: Previous tobacco abuse. ALLERGIES: SULFA. REVIEW OF SYSTEMS: A 10-point review of systems is reviewed as above, otherwise negative. PHYSICAL EXAMINATION: GENERAL: Patient is a pleasant woman, who is in no acute distress. The patient appears their stated age VITAL SIGNS: Blood pressure 156/82, pulse 81, and temperature 97.9. NEUROLOGIC: The patient is alert and oriented x3 with no focal neurologic deficits. HEENT: Sclerae without icterus. Mouth has moist mucous membranes with normal pallor. NECK: No JVD. Carotid upstroke brisk. No bruits bilaterally. LUNGS: Clear to auscultation with unlabored respirations. BACK: No scoliosis or kyphosis. CARDIAC: Regular rate and rhythm with normal S1 and S2. No S3 or S4 noted. No significant rubs, murmurs, thrills, or gallops noted throughout the precordium. PMI is not displaced. There is no parasternal heave. ABDOMEN: Soft, nontender, nondistended. No peritoneal signs present. No hepatosplenomegaly. No abnormal striae. EXTREMITIES: 2+ femoral and 2+ dorsalis pedis pulses. No cyanosis, clubbing, or edema. SKIN: No gross abnormalities. PERTINENT LABORATORY DATA: Hemoglobin 10.6 and creatinine 2.8 with a GFR of 16. IMPRESSION: 1. Preoperative clearance. 2. Atrial fibrillation. 3. Chronic kidney disease. RECOMMENDATIONS: After a long discussion, Ms. Dimas has opted to not proceed with surgery. Her states that they will opt for conservative means and measures. Dr. Martino's note does state comfort measures only at this point. Otherwise, from my standpoint, continue current medical therapy. I have no further recommendations. Please re-consult if needed. Job ID: [id number]
[2018-11-10] MEDS ORDERED: NIFEdipine XL 60 MG TAB PO SCH (13:45)
--- NOTE | 2018-11-10 16:45 | PDOC.HOSPP ---
- Subjective Encounter Date: 11/10/18 Encounter Time: 10:41 Subjective: 83 y/o female with dementia, HTN, AAA, CKD3 admitted with markedly elevated BP associated with abdominal pain, nausea and poor appetite. Treated with cardene drip with improvement. Also found to have cholelithiasis which was felt to be symptomatic and lap pardeep was recommended. Patient spouse, the lead caregiver who initially wanted to proceed with surgery changed his mind and decided against surgery. Patient is feeling better. - Objective Vital Signs & Weight: Vital Signs (12 hours) Temp Pulse Resp BP BP BP Pulse Ox 11/10/18 14:50 81 155/83 H 11/10/18 11:55 97.9 F 81 18 166/82 H 93 L 11/10/18 09:15 81 184/70 H 11/10/18 09:14 77 184/70 H 11/10/18 08:42 184/70 H 11/10/18 07:58 97.9 F 79 18 185/72 H 94 L Weight Admit Weight 125 lb Weight 125 lb 14.143 oz Most Recent Monitor Data Heart Rate from ECG 91 NIBP 171/64 NIBP BP-Mean 99 Respiration from ECG 19 SpO2 91 I&O: 11/09/18 11/10/18 11/11/18 06:59 06:59 06:59 Intake Total 274 Output Total 100 550 Balance 174 -550 Result Diagrams: 11/10/18 04:42 11/10/18 04:42 Hospitalist ROS - Medication Medications: Active Medications Generic Name Dose Route Start Last Admin Trade Name Freq PRN Reason Stop Dose Admin Clonidine 0.2 mg 11/09/18 08:37 11/09/18 20:24 Catapres PO 0.2 mg BID PRN Administration SBP Greater Than 180 Diltiazem HCl 300 mg 11/09/18 09:00 11/10/18 09:15 Cardizem Cd PO 300 mg DAILY DANY Administration Enoxaparin Sodium 30 mg 11/09/18 09:00 11/10/18 09:16 Lovenox SC 30 mg 0900,2100 DANY Administration Hydralazine HCl 100 mg 11/09/18 09:00 11/10/18 14:50 Apresoline PO 100 mg TID DANY Administration Ceftriaxone Sodium 1 gm/ 100 mls @ 200 mls/hr 11/09/18 09:00 11/10/18 09:18 Sodium Chloride IVPB 100 mls Q24HR DANY Administration Metronidazole 500 mg/ Device 100 mls @ 100 mls/hr 11/09/18 10:00 11/10/18 09: 17 IVPB 100 mls 0200,1000,1800 DANY Administration Sodium Chloride 1,000 mls @ 125 mls/hr 11/10/18 09:08 11/10/18 14:51 Normal Saline 0.9% IV 1,000 mls .Q8H DANY Administration Metoprolol Succinate 50 mg 11/09/18 09:00 11/10/18 09:16 Toprol Xl PO 50 mg BID DANY Administration Ondansetron HCl 4 mg 11/08/18 16:27 11/09/18 07:32 Zofran IVP 4 mg Q6H PRN Administration Nausea/Vomiting Saccharomyces Boulardii 250 mg 11/09/18 09:00 11/10/18 09:16 Florastor PO 250 mg DAILY DANY Administration - Exam General Appearance: awake alert Eye: anicteric sclera ENT: normocephalic atraumatic, moist mucosa Neck: supple Heart: no murmur Respiratory: no ronchi Respiratory - other findings: fair air entry with transmitted sound Gastrointestinal: soft, non-tender, non-distended, normal bowel sounds Extremities: no edema Neurological: cranial nerve grossly intact Psychiatric: oriented to person Hosp A/P (1) Hypertensive crisis Code(s): I16.9 - HYPERTENSIVE CRISIS, UNSPECIFIED Status: Acute (2) RAMEZ (acute kidney injury) Code(s): N17.9 - ACUTE KIDNEY FAILURE, UNSPECIFIED Status: Acute (3) CKD stage 3 due to type 1 diabetes mellitus Code(s): E10.22 - TYPE 1 DIABETES MELLITUS W DIABETIC CHRONIC KIDNEY DISEASE; N18.3 - CHRONIC KIDNEY DISEASE, STAGE 3 (MODERATE) Status: Acute (4) Chronic kidney disease, stage 3 Code(s): N18.3 - CHRONIC KIDNEY DISEASE, STAGE 3 (MODERATE) Status: Acute (5) Right upper quadrant abdominal tenderness Code(s): R10.811 - RIGHT UPPER QUADRANT ABDOMINAL TENDERNESS Status: Acute (6) Abdominal pain Code(s): R10.9 - UNSPECIFIED ABDOMINAL PAIN Status: Acute (7) Dementia Code(s): F03.90 - UNSPECIFIED DEMENTIA WITHOUT BEHAVIORAL DISTURBANCE Status: Acute (8) AAA (abdominal aortic aneurysm) Code(s): I71.4 - ABDOMINAL AORTIC ANEURYSM, WITHOUT RUPTURE Status: Acute (9) Cholelithiasis Code(s): K80.20 - CALCULUS OF GALLBLADDER W/O CHOLECYSTITIS W/O OBSTRUCTION Status: Acute (10) Paroxysmal A-fib Code(s): I48.0 - PAROXYSMAL ATRIAL FIBRILLATION Status: Chronic - Plan Start nifedipine 60 mg daily. Continue current antihypertensives. Continue antibiotics. change to oral in preparation for discharge. Monitor renal function.
--- NOTE | 2018-11-10 18:36 | PRG ---
DATE OF SERVICE: 11/10/2018 SUBJECTIVE: Patient was seen and examined at bedside and overnight events noted. Patient denies any shortness of breath or chest pain or palpitation. No history of nausea or vomiting or diarrhea or fever or chills or cramps. OBJECTIVE: GENERAL: This is an elderly female, in no apparent distress. VITAL SIGNS: Temperature 97.9. Heart rate 81. Respiratory rate 18. Blood pressure 166/82. HEENT: Atraumatic, normocephalic. Oral mucosa is moist NECK: Supple. CARDIOVASCULAR: S1, S2 heard. Rate and rhythm regular. RESPIRATORY: Clear to auscultation. GASTROINTESTINAL: Abdomen is soft. MUSCULOSKELETAL: No tenderness. No edema. DERMATOLOGIC: No skin rash. NEUROLOGIC: Alert and awake and oriented X3. No focal neurologic deficits. Moving all the extremities. PSYCHIATRIC: Mood and affect normal. LABORATORY DATA: Potassium 4.1, BUN is 49, and creatinine is 2.81. ASSESSMENT AND PLAN: 1. Acute kidney injury on chronic kidney disease, stage 3 with worsening creatinine. Continue to monitor. 2. Hypertension. Added Procardia today. We will monitor. 3. Edema, controlled. 4. Left atrophic kidney with small right kidney. 5. Anemia of chronic disease. 6. Ischemic nephropathy. Prognosis, guarded. Continue to monitor renal function. Avoid nephrotoxins. Medication list reviewed. Continue antibiotics and we will continue IV fluids as tolerated, IV fluids increased to 125 mL by Surgery. We will follow. Job ID: [id number]
[2018-11-10] MEDS: Amoxicillin/Potassium Clav 500 MG TAB PO SCH (20:18)
[2018-11-10] MEDS: Sodium Bicarbonate Tab 325 MG TAB PO SCH (20:27)
[2018-11-11] MEDS: Sodium Chloride 0.9% 1,000 ML IV SCH (05:07)
[2018-11-11 06:22] LABS: #Lymphocytes 0.9 thou/uL (1.20-3.40); #Monocytes 0.9 thou/uL (0.11-0.59); #Neutrophils 15.5 thou/uL (1.40-6.50); %Eosinophils 0.1 % (0.0-10.0); %Monocytes 5.1 % (0.0-10.0); %Neutrophils 89.8 % (42.0-75.0); Hemoglobin 9.5 g/dL (12.0-16.0); Mean Corpuscular HGB CONC 32.6 g/dL (32.0-36.0); Mean Corpuscular Hemoglobin 29.9 pg (27.0-31.0); Mean Corpuscular Volume 91.7 fL (78.0-98.0); Platelet Count 313 thou/uL (130-400); RBC Distribution Width 13.6 % (11.5-14.5); Red Blood Cell (RBC) Count 3.17 mill/uL (4.20-5.40); White Blood Cell (WBC) Count 17.2 thou/uL (4.8-10.8)
[2018-11-11 06:42] LABS: ALT (SGPT) Less than 7 U/L (8-55); AST (SGOT) 10 U/L (5-34); Albumin 3.2 g/dL (3.4-4.8); Alkaline Phosphatase 61 U/L (40-150); Anion Gap 17 mmol/L (10-20); BUN (Urea Nitrogen) 52 mg/dL (9.8-20.1); Bilirubin, Total 0.2 mg/dL (0.2-1.2); Calc. Creatinine Clearance 15 mL/min (70-130); Calcium 7.9 mg/dL (7.8-10.44); Carbon Dioxide 16 mmol/L (23-31); Chloride 107 mmol/L (98-107); Estimated GFR-MDRD 17; Globulin 3.2 g/dL (2.4-3.5); Glucose 127 mg/dL (83-110); Potassium 3.7 mmol/L (3.5-5.1); Protein, Total 6.4 g/dL (6.0-8.3); Sodium 136 mmol/L (136-145)
[2018-11-11] MEDS ORDERED: Sodium Bicarbonate 75 MEQ in Sodium Chloride 0.45% 1,000 ML IV SCH (08:45)
[2018-11-11] MEDS: Diltiazem HCl CD 300 mg Capsule PO SCH (08:59)
[2018-11-11] MEDS: Amoxicillin/Potassium Clav 500 MG TAB PO SCH ×2 (09:01→20:14)
[2018-11-11] MEDS: NIFEdipine XL 60 MG TAB PO SCH (09:01)
[2018-11-11] MEDS: hydrALAZINE 25 MG TAB PO SCH ×3 (09:01→20:14)
[2018-11-11] MEDS: Saccharomyces boulardii 250 MG CAP PO SCH (09:02)
[2018-11-11] MEDS: Enoxaparin Sodium 30 MG/0.3 ML SYRINGE SC SCH ×2 (09:02→20:25)
[2018-11-11] MEDS: Sodium Bicarbonate Tab 325 MG TAB PO SCH ×2 (09:02→20:24)
--- NOTE | 2018-11-11 11:14 | PRG ---
DATE OF SERVICE: 11/11/2018 SUBJECTIVE: Patient was seen and examined at bedside and overnight events noted. Patient denies any shortness of breath or chest pain or palpitation. No history of nausea or vomiting or diarrhea or fever or chills or cramps. OBJECTIVE: GENERAL: This is an elderly female, in no apparent distress. VITAL SIGNS: Temperature 97.7. Pulse 80. Respiratory rate 20. Blood pressure 128/66. HEENT: Atraumatic, normocephalic. Oral mucosa is moist NECK: Supple. CARDIOVASCULAR: S1, S2 heard. Rate and rhythm regular. RESPIRATORY: Clear to auscultation. GASTROINTESTINAL: Abdomen is soft. MUSCULOSKELETAL: No tenderness. No edema. DERMATOLOGIC: No skin rash. NEUROLOGIC: Alert and awake and oriented X3. No focal neurologic deficits. Moving all the extremities. PSYCHIATRIC: Mood and affect normal. LABORATORY DATA: Potassium 3.7, BUN is 52, creatinine is 2.7, GFR is 70. ASSESSMENT AND PLAN: 1. Acute kidney injury on chronic kidney disease stage 3 with stable labs. 2. Hypertension. 3. Edema. 4. Left atrophic kidney. 5. Anemia of chronic disease. 6. Ischemic nephropathy. 7. Labs stable. We will follow. Job ID: [id number]
--- NOTE | 2018-11-11 12:20 | PDOC.HOSPP ---
- Subjective Encounter Date: 11/11/18 Encounter Time: 12:19 Subjective: 83 y/o female with dementia, HTN, AAA, CKD3 admitted with markedly elevated BP associated with abdominal pain, nausea and poor appetite. Treated with cardene drip with improvement. Also found to have cholelithiasis which was felt to be symptomatic and lap pardeep was recommended. Patient spouse, the menagerie caretaker who initially wanted to proceed with surgery later changed his mind and decided against surgery. Patient is feeling better and more conversational today. No fever. tolerating oral intake. - Objective Vital Signs & Weight: Vital Signs (12 hours) Temp Pulse Resp BP BP BP Pulse Ox 11/11/18 12:02 97.4 F L 86 16 124/71 89 L 11/11/18 09:01 83 128/66 11/11/18 08:59 83 128/66 11/11/18 08:00 97.7 F 83 18 128/66 92 L 11/11/18 04:00 97.5 F L 80 20 127/69 94 L Weight Admit Weight 125 lb Weight 125 lb 14.143 oz Most Recent Monitor Data Heart Rate from ECG 91 NIBP 171/64 NIBP BP-Mean 99 Respiration from ECG 19 SpO2 91 I&O: 11/10/18 11/11/18 11/12/18 06:59 06:59 06:59 Intake Total 1700 Output Total 550 400 Balance -550 1300 Result Diagrams: 11/11/18 05:55 11/11/18 05:55 Hospitalist ROS - Medication Medications: Active Medications Generic Name Dose Route Start Last Admin Trade Name Freq PRN Reason Stop Dose Admin Amoxicillin/Clavulanate Potassium 500 mg 11/10/18 21:00 11/11/18 09:01 Augmentin PO 500 mg Q12HR DANY Administration Clonidine 0.2 mg 11/09/18 08:37 11/09/18 20:24 Catapres PO 0.2 mg BID PRN Administration SBP Greater Than 180 Diltiazem HCl 300 mg 11/09/18 09:00 11/11/18 08:59 Cardizem Cd PO 300 mg DAILY DANY Administration Enoxaparin Sodium 30 mg 11/09/18 09:00 11/11/18 09:02 Lovenox SC 30 mg 0900,2100 DANY Administration Hydralazine HCl 100 mg 11/09/18 09:00 11/11/18 09:01 Apresoline PO 100 mg TID DANY Administration Metoprolol Succinate 50 mg 11/09/18 09:00 11/11/18 09:02 Toprol Xl PO 50 mg BID DANY Administration Nifedipine 60 mg 11/11/18 09:00 11/11/18 09:01 Procardia Xl PO 60 mg DAILY DANY Administration Ondansetron HCl 4 mg 11/08/18 16:27 11/09/18 07:32 Zofran IVP 4 mg Q6H PRN Administration Nausea/Vomiting Saccharomyces Boulardii 250 mg 11/09/18 09:00 11/11/18 09:02 Florastor PO 250 mg DAILY DANY Administration Sodium Bicarbonate 650 mg 11/10/18 21:00 11/11/18 09:02 Bicarbonate, Sodium PO 650 mg BID DANY Administration - Exam General Appearance: awake alert Eye: anicteric sclera ENT: normocephalic atraumatic Neck: supple, symmetric Heart: RRR Respiratory: no ronchi, no tachypnea Respiratory - other findings: fair air entry with transmitted sound. Gastrointestinal: soft, non-tender, non-distended, normal bowel sounds Extremities: no cyanosis, no edema Musculoskeletal: generalized weakness Psychiatric: oriented to person Hosp A/P (1) RAMEZ (acute kidney injury) Code(s): N17.9 - ACUTE KIDNEY FAILURE, UNSPECIFIED Status: Acute (2) Hypertensive crisis Code(s): I16.9 - HYPERTENSIVE CRISIS, UNSPECIFIED Status: Acute (3) CKD stage 3 due to type 1 diabetes mellitus Code(s): E10.22 - TYPE 1 DIABETES MELLITUS W DIABETIC CHRONIC KIDNEY DISEASE; N18.3 - CHRONIC KIDNEY DISEASE, STAGE 3 (MODERATE) Status: Acute (4) Chronic kidney disease, stage 3 Code(s): N18.3 - CHRONIC KIDNEY DISEASE, STAGE 3 (MODERATE) Status: Acute (5) Right upper quadrant abdominal tenderness Code(s): R10.811 - RIGHT UPPER QUADRANT ABDOMINAL TENDERNESS Status: Acute (6) Abdominal pain Code(s): R10.9 - UNSPECIFIED ABDOMINAL PAIN Status: Acute (7) Dementia Code(s): F03.90 - UNSPECIFIED DEMENTIA WITHOUT BEHAVIORAL DISTURBANCE Status: Acute (8) AAA (abdominal aortic aneurysm) Code(s): I71.4 - ABDOMINAL AORTIC ANEURYSM, WITHOUT RUPTURE Status: Acute (9) Cholelithiasis Code(s): K80.20 - CALCULUS OF GALLBLADDER W/O CHOLECYSTITIS W/O OBSTRUCTION Status: Acute (10) Paroxysmal A-fib Code(s): I48.0 - PAROXYSMAL ATRIAL FIBRILLATION Status: Chronic (11) Metabolic acidosis Code(s): E87.2 - ACIDOSIS Status: Acute - Plan Substitute NS with sodium bicarb containing infusion due to worsening metabolic acidosis. Continue current antihypertensives as BP is adequately controlled Continue antibiotics. PT/OT eval and treat Monitor renal function. Possible discharge tomorrow
[2018-11-11] MEDS: Ketotifen Fumarate 0.025% Ophth Soln 5 ml Bottle EA EYE SCH (20:15)
[2018-11-12 04:33] LABS: #Eosinphils 0.2 thou/uL (0.0-0.7); #Monocytes 0.7 thou/uL (0.11-0.59); #Neutrophils 12.9 thou/uL (1.40-6.50); %Basophils 0.1 % (0.0-1.0); %Eosinophils 1.2 % (0.0-10.0); %Lymphocytes 6.5 % (21.0-51.0); %Monocytes 4.6 % (0.0-10.0); %Neutrophils 87.5 % (42.0-75.0); Hemoglobin 10.4 g/dL (12.0-16.0); Mean Corpuscular HGB CONC 32.1 g/dL (32.0-36.0); Mean Corpuscular Hemoglobin 29.5 pg (27.0-31.0); Mean Corpuscular Volume 91.8 fL (78.0-98.0); Mean Platelet Volume 7.2 fL (7.4-10.4); Platelet Count 342 thou/uL (130-400); RBC Distribution Width 13.5 % (11.5-14.5); Red Blood Cell (RBC) Count 3.53 mill/uL (4.20-5.40); White Blood Cell (WBC) Count 14.7 thou/uL (4.8-10.8)
[2018-11-12 04:53] LABS: Albumin 3.2 g/dL (3.4-4.8); Anion Gap 14 mmol/L (10-20); BUN (Urea Nitrogen) 59 mg/dL (9.8-20.1); BUN/Creatinine Ratio 17.72; Calc. Creatinine Clearance 12 mL/min (70-130); Calcium 8.2 mg/dL (7.8-10.44); Carbon Dioxide 24 mmol/L (23-31); Chloride 103 mmol/L (98-107); Estimated GFR-MDRD 13; Glucose 118 mg/dL (83-110); Phosphorus 3.8 mg/dL (2.3-4.7); Potassium 3.3 mmol/L (3.5-5.1); Sodium 138 mmol/L (136-145)
[2018-11-12] MEDS ORDERED: Famotidine/PF 20 mg/2ml Vial SLOW IVP SCH (06:00)
[2018-11-12] MEDS: Ondansetron PF 4 MG/2 ML Vial IVP PRN (06:03)
[2018-11-12] MEDS: Diltiazem HCl CD 300 mg Capsule PO SCH (08:50)
[2018-11-12] MEDS: NIFEdipine XL 60 MG TAB PO SCH (08:51)
[2018-11-12] MEDS: Saccharomyces boulardii 250 MG CAP PO SCH (08:54)
[2018-11-12] MEDS: hydrALAZINE 25 MG TAB PO SCH ×3 (08:54→20:00)
[2018-11-12] MEDS: Amoxicillin/Potassium Clav 500 MG TAB PO SCH (08:55)
[2018-11-12] MEDS: Ketotifen Fumarate 0.025% Ophth Soln 5 ml Bottle EA EYE SCH ×2 (08:57→20:35)
[2018-11-12] MEDS: Enoxaparin Sodium 30 MG/0.3 ML SYRINGE SC SCH ×2 (08:57→09:15)
[2018-11-12] MEDS: Famotidine 20 MG TAB PO SCH (09:01)
[2018-11-12] MEDS ORDERED: Pantoprazole 40 MG VIAL IVP SCH (10:45)
[2018-11-12] MEDS ORDERED: Sodium Chloride 0.9% 1,000 ML IV SCH (10:45)
[2018-11-12] MEDS ORDERED: Bisacodyl 10 MG SUPP PR SCH (10:45)
--- NOTE | 2018-11-12 11:01 | RAD ---
EXAM: XR Abdomen 1 View/KUB PROVIDED CLINICAL HISTORY: Abdominal distention COMPARISON: None FINDINGS: Multiple loops of gas-filled dilated small bowel are demonstrated suspicious for small bowel obstruct ion. The supine nature of the examination is not sensitive for detection of pneumoperitoneum. No radiographically apparent urinary tract calculi. Implanted loop recorder device overlies the left low er chest. IMPRESSION: Multiple dilated loops of gas-filled small bowel, suspicious for small bowel obstruction.
[2018-11-12] MEDS: Piperacillin/Tazobactam 2.25 GM in Sodium Chloride 0.9% 100 ML IVPB SCH ×3 (11:17→23:34)
[2018-11-12 12:23] LABS: Hemoglobin 9.8 g/dL (12.0-16.0)
[2018-11-12] MEDS ORDERED: Mineral Oil ENEMA PR SCH (13:00)
--- NOTE | 2018-11-12 13:29 | EKG ---
Test Reason : Blood Pressure : / mmHG Vent. Rate : 079 BPM Atrial Rate : 079 BPM P-R Int : 144 ms QRS Dur : 074 ms QT Int : 418 ms P-R-T Axes : 039 001 028 degrees QTc Int : 479 ms Normal sinus rhythm Septal infarct , age undetermined Abnormal ECG Confirmed by CANDIDA MARY, VALERI ([id number]), manuscript editor HARIKA AMADOR ([id number]) on 11/12/2018 1:29:07 PM Referred By: Confirmed By:VALERI TIRADO MD
--- NOTE | 2018-11-12 14:43 | CT ---
EXAM: CT Abdomen Pelvis WO Con PROVIDED CLINICAL HISTORY: Abdominal pain and distention COMPARISON: 03/22/2018 FINDINGS: Bilateral pleural effusions are partially visualized with adjacent atelectasis or infiltrate. The solid abdominal organs are suboptimally evaluated in the absence of IV contrast material but demo nstrate a stable unenhanced CT appearance. Saccular infrarenal abdominal aortic aneurysm is redemonstrated. Is appears larger than on prior, pos sibly measuring up to 4 cm in greatest transverse dimension and 5.9 cm in craniocaudal dimension. This is suboptimally evaluated in the absence of IV contrast. Multiple fluid filled loops of dilated proximal small bowel are noted with transition zone in the mid abdomen with decompressed distal bowel noted. There is a small amount of free intraperitoneal fluid. There is no evidence for pneumatosis or free air. Vascular calcifications are seen. The osseous structures demonstrate no concerning lytic or blastic l esions. IMPRESSION: 1. Findings compatible with small bowel obstruction. 2. Apparent interval increase in size of saccular infrarenal abdominal aortic aneurysm. Vascular surg ical consultation is recommended. 3. Bilateral pleural effusions with adjacent atelectasis and/or infiltrate. 4. Findings communicated to the patient's nurse 2:39 PM 11/12/2018.
--- NOTE | 2018-11-12 15:16 | PRG ---
DATE OF SERVICE: 11/12/2018 SUBJECTIVE: Patient was seen and examined at bedside and overnight events noted. Patient denies any shortness of breath or chest pain or palpitation. No history of nausea or vomiting or diarrhea or fever or chills or cramps. OBJECTIVE: GENERAL: This is an elderly female, in no apparent distress. VITAL SIGNS: Temperature 98.1. Pulse 89. Respiratory rate 20. Blood pressure 104/57. HEENT: Atraumatic, normocephalic. Oral mucosa is moist NECK: Supple. CARDIOVASCULAR: S1, S2 heard. Rate and rhythm regular. RESPIRATORY: Clear to auscultation. GASTROINTESTINAL: Abdomen is soft. MUSCULOSKELETAL: No tenderness. No edema. DERMATOLOGIC: No skin rash. NEUROLOGIC: Alert and awake and oriented X3. No focal neurologic deficits. Moving all the extremities. PSYCHIATRIC: Mood and affect normal. LABORATORY DATA: Potassium 3.3, BUN is 59, and creatinine is 3.3. ASSESSMENT AND PLAN: 1. Acute kidney injury. Creatinine getting worse, most likely from sepsis. Recommend broadening the coverage and maybe further imaging of dominant. Follow up with GI or Surgery. 2. Hypertension. 3. Edema. 4. Left atrophic kidney. 5. Anemia of chronic disease. 6. Ischemic nephropathy. Clinically, she seems to be getting worse. Recommend broadening the antibiotics and rule out intraabdominal pathology. Case discussed with Dr. Aguayo. Job ID: [id number]
--- NOTE | 2018-11-12 16:23 | PDOC.HOSPP ---
- Subjective Encounter Date: 11/12/18 Encounter Time: 16:20 Subjective: 83 y/o female with dementia, HTN, AAA, CKD3 admitted with markedly elevated BP associated with abdominal pain, nausea and poor appetite. Treated with cardene drip with improvement. Also found to have cholelithiasis which was felt to be symptomatic and lap pardeep was recommended. Patient spouse, the patient care who initially wanted to proceed with surgery later changed his mind and decided against surgery. Patient had 2 dark colored emesis last night associated with ill feeling and weakness. - Objective Vital Signs & Weight: Vital Signs (12 hours) Temp Pulse Resp BP BP Pulse Ox 11/12/18 14:48 88 123/75 11/12/18 12:00 97.7 F 88 20 123/75 91 L 11/12/18 08:54 88 104/57 L 11/12/18 08:51 88 104/57 L 11/12/18 08:50 88 104/57 L 11/12/18 08:00 98.1 F 89 20 104/57 L 94 L 11/12/18 05:00 97.4 F L 91 20 115/64 92 L Weight Admit Weight 125 lb Weight 125 lb 14.143 oz Most Recent Monitor Data Heart Rate from ECG 91 NIBP 171/64 NIBP BP-Mean 99 Respiration from ECG 19 SpO2 91 I&O: 11/11/18 11/12/18 11/13/18 06:59 06:59 06:59 Intake Total 1700 1500 60 Output Total 400 Balance 1300 1500 60 Result Diagrams: 11/12/18 12:11 11/12/18 03:36 Hospitalist ROS - Medication Medications: Active Medications Generic Name Dose Route Start Last Admin Trade Name Freq PRN Reason Stop Dose Admin Clonidine 0.2 mg 11/09/18 08:37 11/09/18 20:24 Catapres PO 0.2 mg BID PRN Administration SBP Greater Than 180 Diltiazem HCl 300 mg 11/09/18 09:00 11/12/18 08:50 Cardizem Cd PO Not Given DAILY DANY Famotidine 20 mg 11/12/18 09:00 11/12/18 09:01 Pepcid PO 20 mg DAILY DANY Administration Hydralazine HCl 100 mg 11/09/18 09:00 11/12/18 14:48 Apresoline PO Not Given TID DANY Piperacillin Sod/Tazobactam 100 mls @ 200 mls/hr 11/12/18 12:00 11/12/18 11: 17 Sod 2.25 gm/ Sodium Chloride IVPB 100 mls Q6HR DANY Administration Ketotifen Fumarate 1 drop 11/11/18 21:00 11/12/18 08:57 Zaditor 0.025% Ophth Soln EA EYE 1 drop BID DANY Administration Metoprolol Succinate 50 mg 11/09/18 09:00 11/12/18 08:58 Toprol Xl PO 50 mg BID DANY Administration Nifedipine 60 mg 11/11/18 09:00 11/12/18 08:51 Procardia Xl PO Not Given DAILY DANY Ondansetron HCl 4 mg 11/08/18 16:27 11/12/18 06:03 Zofran IVP 4 mg Q6H PRN Administration Nausea/Vomiting Saccharomyces Boulardii 250 mg 11/09/18 09:00 11/12/18 08:54 Florastor PO 250 mg DAILY DANY Administration - Exam General Appearance: awake alert General - other findings: fatigued, afebrile Eye: anicteric sclera ENT: normocephalic atraumatic Neck: symmetric Heart: RRR Respiratory - other findings: fair air entry bilaterally with some transmitted sound Gastrointestinal: soft, non-tender, distended, diminished bowl sounds Extremities: no cyanosis, no edema Neurological: cranial nerve grossly intact, no focal deficits Musculoskeletal: generalized weakness Hosp A/P (1) SBO (small bowel obstruction) Code(s): K56.609 - UNSP INTESTNL OBST, UNSP TO PARTIAL VERSUS COMPLETE OBST Status: Acute (2) RAMEZ (acute kidney injury) Code(s): N17.9 - ACUTE KIDNEY FAILURE, UNSPECIFIED Status: Acute (3) Hypertensive crisis Code(s): I16.9 - HYPERTENSIVE CRISIS, UNSPECIFIED Status: Acute (4) CKD stage 3 due to type 1 diabetes mellitus Code(s): E10.22 - TYPE 1 DIABETES MELLITUS W DIABETIC CHRONIC KIDNEY DISEASE; N18.3 - CHRONIC KIDNEY DISEASE, STAGE 3 (MODERATE) Status: Acute (5) Chronic kidney disease, stage 3 Code(s): N18.3 - CHRONIC KIDNEY DISEASE, STAGE 3 (MODERATE) Status: Acute (6) Right upper quadrant abdominal tenderness Code(s): R10.811 - RIGHT UPPER QUADRANT ABDOMINAL TENDERNESS Status: Acute (7) Abdominal pain Code(s): R10.9 - UNSPECIFIED ABDOMINAL PAIN Status: Acute (8) Dementia Code(s): F03.90 - UNSPECIFIED DEMENTIA WITHOUT BEHAVIORAL DISTURBANCE Status: Acute (9) AAA (abdominal aortic aneurysm) Code(s): I71.4 - ABDOMINAL AORTIC ANEURYSM, WITHOUT RUPTURE Status: Acute (10) Cholelithiasis Code(s): K80.20 - CALCULUS OF GALLBLADDER W/O CHOLECYSTITIS W/O OBSTRUCTION Status: Acute (11) Paroxysmal A-fib Code(s): I48.0 - PAROXYSMAL ATRIAL FIBRILLATION Status: Chronic (12) Metabolic acidosis Code(s): E87.2 - ACIDOSIS Status: Acute (13) Constipation Code(s): K59.00 - CONSTIPATION, UNSPECIFIED Status: Acute - Plan NPO. NS 1000 liter bolused Enema for constipation CT abd without contrast showed featuires of SBO. AAA also was not to have increased in size. Continue sodium bicarb containing infusion Hold antihypertensives Continue antibiotics. Monitor renal function. Consult General surgery for SNO Consult vascular for increasing AAA Care updates and plan discussed with patient's spouse and children.
[2018-11-12] MEDS ORDERED: Sodium Chloride 0.9% (PF) 10 ML VIAL FS PRN (16:34)
--- NOTE | 2018-11-12 16:56 | PRG ---
DATE OF SERVICE: 11/12/2018 SUBJECTIVE: I was asked to see Ms. Dimas for possible small bowel obstruction. She has had increasing abdominal distention. Dr. Martino saw her back on the for a gallstone. She was deemed to be high risk given her chronic renal and acute renal insufficiency as well as her coronary artery disease. Dr. Cardoza is the calender roll press operator who saw her. She has also been followed by Dr. Isaac for Nephrology. She has made no urine today. Her abdominal is more distended. She vomited overnight. PHYSICAL EXAMINATION: VITAL SIGNS: Her blood pressure is 123/75, her pulse is 88, respirations 20. No urine today. ABDOMEN: Soft. It is distended and diffusely mildly tender without guarding or rebound. No abdominal or inguinal hernias. EXTREMITIES: No ischemia or edema to extremities. IMAGING STUDIES: On CT of the abdomen and pelvis discussed with Dr. Christensen, originally read by Dr. Tovar. There is question of small bowel obstruction versus ileus. She does have a significant amount of air in her colon, which would be more consistent with ileus versus small bowel obstruction. She has free fluid and pleural effusion. She has no evidence of free air. ASSESSMENT: 1. Acute on chronic renal insufficiency, worsening with volume overload, but not make any urine. 2. Abdominal distention consistent with ileus, although could be small bowel obstruction. PLAN: NG tube lower mid wall suction. She is not a candidate for any sort of surgical procedure unfortunately unless it is life and , even then she likely would not tolerate or survive. Family is also considering dialysis, which may need to be required in the next 24 to 48 hours. Job ID: [id number]
--- NOTE | 2018-11-12 19:46 | PDOC.EVN ---
Event Note - Event Note Event Note: Code green was called pt is in hypoxic respiratory failure, discussed with and family member and they have expressed that patient has expressed in the past she did not want to be on life support, pt presents multiple commodities what makes prognosis very poor at this point, they have understood and verbalized understanding that she could without more aggressive medical management and they have decided to continue to give medical management but not any further agressive measures, we will continue with treatment place her on high flow oxygen , we will monitor, Pt is DNR/DNI
[2018-11-12 19:52] LABS: Actual Bicarbonate (HCO3a) 23.4 mEq/L (22-28); CO2 Tension 42.4 mmHg (35.0-45.0); O2 Tension (PaO2) 38.2 mmHg (> 60.0); pH, Arterial 7.36 (7.35-7.45)
[2018-11-12 19:53] LABS: Carboxyhemoglobin (COHb) 0.8 gm% (0.0-3.0); Hemoglobin (Hb) 10.6 g/dL (12.0-16.0)
[2018-11-12 19:54] LABS: Calcium, Ionized 1.06 mmol/L (1.12-1.30); Potassium - ABG Lab 3.81 mmol/L (3.70-5.30); Puncture Site RBRACHIAL
[2018-11-12] MEDS: Pantoprazole 40 MG VIAL IVP SCH (20:35)
--- NOTE | 2018-11-12 20:58 | CON ---
DATE OF CONSULTATION: HISTORY OF PRESENT ILLNESS: Marian Dimas is an 83-year-old female, admitted to the hospital for severe hypertension and abdominal pain. She had been seen in the physician's office and recommended that she go to the emergency room due to her hypertension. She had been having some nausea for some time. She has a longstanding history of hypertension, chronic kidney disease, dementia, paroxysmal atrial fibrillation, abdominal aortic aneurysm. She lives with her at home. She is a nonsmoker. Her activity level has been markedly diminished over the past 2 years. The had quit his job, so that he could stay home with his , because she could not be left alone. She used a walker for the past two years, but really did not do much other than walk to the dinner table. Occasionally, she was confused at home, but for the most part, was functional. She had been admitted to the hospital, where she had an evaluation by multiple consultants. She was noted to have an elevated creatinine, suspicion of small bowel obstruction and was found to have kidney stones. She was seen by Dr. Martino, and after discussion with the family, comfort care was decided upon. I was called today when a CT scan showed an abdominal aneurysm that had enlarged compared to a prior study in February. The patient had not complained of any abdominal discomfort today, but had been rather lethargic and difficult to arouse. Medications prior to admission included multiple blood pressure medicines. These are well recorded in the records. PHYSICAL EXAMINATION: GENERAL: On examination today, she is very lethargic, will awaken to verbal commands, but really not respond verbally. She has upper airway gurgling sounds, which she is unable to clear and does not cough. LUNGS: Bilateral rhonchi. CARDIAC: Rhythm is regular at this time. ABDOMEN: Somewhat mildly distended, doughy and not particularly tender. I cannot palpate her aneurysm. EXTREMITIES: She has a palpable right femoral pulse and I am unable to palpate left femoral pulse or any other distal pulses. She has no peripheral edema. LABORATORY VALUES: Her white count most recently was slightly elevated at 14,000. Her hemoglobin is relatively stable at about 10 g. REVIEW OF SYSTEMS: Her CT scan shows no evidence of an endoleak. 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 She has heavily calcified abdominal aorta distally as well as her iliac arteries. No contrast was given due to her creatinine of 3.3, which has risen slightly from admission 3 days ago at 2.7. I have had a discussion with the patient's and daughter. ASSESSMENT AND PLAN: At this time, she has not developed a leaking aneurysm and I do not think her ileus is related to her aneurysm. Unfortunately, she does have a rather large aneurysm and increase risk of rupture; however, given her overall condition, I do not feel that any intervention is appropriate, and I have discussed the possibility that at some point she may rupture her aneurysm and . She is not a candidate for an endovascular aneurysm repair due to the very short neck. At this time, comfort care seems most appropriate in this lady. Job ID: [id number]
[2018-11-13] MEDS: Piperacillin/Tazobactam 2.25 GM in Sodium Chloride 0.9% 100 ML IVPB SCH ×2 (05:38→11:21)
[2018-11-13 05:46] LABS: #Eosinphils 0.4 thou/uL (0.0-0.7); #Monocytes 0.7 thou/uL (0.11-0.59); #Neutrophils 12.7 thou/uL (1.40-6.50); %Basophils 0.1 % (0.0-1.0); %Eosinophils 2.7 % (0.0-10.0); %Lymphocytes 6.6 % (21.0-51.0); %Monocytes 4.5 % (0.0-10.0); %Neutrophils 86.1 % (42.0-75.0); Hemoglobin 9.8 g/dL (12.0-16.0); Mean Corpuscular HGB CONC 32.8 g/dL (32.0-36.0); Mean Corpuscular Hemoglobin 29.8 pg (27.0-31.0); Mean Corpuscular Volume 91.1 fL (78.0-98.0); Mean Platelet Volume 6.8 fL (7.4-10.4); Platelet Count 295 thou/uL (130-400); RBC Distribution Width 13.7 % (11.5-14.5); Red Blood Cell (RBC) Count 3.28 mill/uL (4.20-5.40); White Blood Cell (WBC) Count 14.8 thou/uL (4.8-10.8)
[2018-11-13 06:13] LABS: Anion Gap 15 mmol/L (10-20); BUN (Urea Nitrogen) 66 mg/dL (9.8-20.1); BUN/Creatinine Ratio 20.63; Calc. Creatinine Clearance 12 mL/min (70-130); Calcium 7.6 mg/dL (7.8-10.44); Carbon Dioxide 22 mmol/L (23-31); Chloride 105 mmol/L (98-107); Estimated GFR-MDRD 14; Glucose 98 mg/dL (83-110); Phosphorus 3.6 mg/dL (2.3-4.7); Potassium 3.5 mmol/L (3.5-5.1); Sodium 138 mmol/L (136-145)
[2018-11-13] MEDS: Pantoprazole 40 MG VIAL IVP SCH ×2 (07:50→20:30)
[2018-11-13] MEDS: Saccharomyces boulardii 250 MG CAP PO SCH (07:53)
[2018-11-13] MEDS: NIFEdipine XL 60 MG TAB PO SCH (07:53)
[2018-11-13] MEDS: hydrALAZINE 25 MG TAB PO SCH (07:54)
[2018-11-13] MEDS: Famotidine 20 MG TAB PO SCH (07:54)
[2018-11-13] MEDS: Ketotifen Fumarate 0.025% Ophth Soln 5 ml Bottle EA EYE SCH ×2 (07:54→20:33)
[2018-11-13] MEDS: Diltiazem HCl CD 300 mg Capsule PO SCH (07:55)
[2018-11-13] MEDS ORDERED: Famotidine/PF 20 mg/2ml Vial SLOW IVP SCH (09:00)
[2018-11-13] MEDS ORDERED: Lorazepam 2 MG/ML VIAL SLOW IVP PRN (11:28)
[2018-11-13] MEDS: Morphine 2 MG/ML SYRINGE SLOW IVP PRN ×4 (12:09→22:21)
--- NOTE | 2018-11-13 13:34 | PDOC.HOSPP ---
- Subjective Encounter Date: 11/13/18 Encounter Time: 13:31 Subjective: 83 y/o female with dementia, HTN, AAA, CKD3 admitted with markedly elevated BP associated with abdominal pain, nausea and poor appetite. Treated with cardene drip with improvement. Also found to have cholelithiasis which was felt to be symptomatic and lap pardeep was recommended. Patient spouse, the career technical education teacher who initially wanted to proceed with surgery later changed his mind and decided against surgery. Patient later had dark colored emesis associated with abdominal pain. Further evaluation with CT showed features of SBO as well as interval increase in the size of AAA. Genera surgery and CVS saw patient and she was deemed a poor surgical candidate at the moment. Got more SOB and hypoxic last night and was made DNR in line with relatives wishes. - Objective Vital Signs & Weight: Vital Signs (12 hours) Temp Pulse Resp BP BP Pulse Ox 11/13/18 08:00 99.3 F 92 20 154/71 H 94 L 11/13/18 07:55 91 11/13/18 07:54 91 11/13/18 07:53 91 11/13/18 04:00 97.9 F 91 20 132/63 90 L 11/13/18 03:56 87 20 132/63 96 Weight Admit Weight 125 lb Weight 125 lb 14.143 oz Most Recent Monitor Data Heart Rate from ECG 91 NIBP 171/64 NIBP BP-Mean 99 Respiration from ECG 19 SpO2 91 I&O: 11/12/18 11/13/18 11/14/18 06:59 06:59 06:59 Intake Total 1500 60 Balance 1500 60 Result Diagrams: 11/13/18 05:28 11/13/18 05:28 Additional Labs: Accuchecks 11/12/18 19:30 POC Glucose 107 Hospitalist ROS - Medication Medications: Active Medications Generic Name Dose Route Start Last Admin Trade Name Freq PRN Reason Stop Dose Admin Ketotifen Fumarate 1 drop 11/11/18 21:00 11/13/18 07:54 Zaditor 0.025% Ophth Soln EA EYE 1 drop BID DANY Administration Morphine Sulfate 2 mg 11/13/18 11:28 11/13/18 12:09 Morphine SLOW IVP 2 mg Q2H PRN Administration Pain Ondansetron HCl 4 mg 11/08/18 16:27 11/12/18 06:03 Zofran IVP 4 mg Q6H PRN Administration Nausea/Vomiting Pantoprazole Sodium 40 mg 11/12/18 21:00 11/13/18 07:50 Protonix IVP 40 mg Q12HR DANY Administration Sodium Chloride 10 ml 11/12/18 16:34 11/13/18 07:50 Normal Saline Pf FS 10 ml PRN PRN Administration RECONSTITUTION - Exam General - other findings: lethargic ENT: normocephalic atraumatic, dry oral mucosa ENT - other findings: NG tube in place Heart: irregular Respiratory - other findings: fair air entry with transmitted sound Gastrointestinal: soft, tender to palpation, distended Extremities: 1+ LE edema Neurological: cranial nerve grossly intact Neurological - other findings: lethargic Hosp A/P (1) SBO (small bowel obstruction) Code(s): K56.609 - UNSP INTESTNL OBST, UNSP TO PARTIAL VERSUS COMPLETE OBST Status: Acute (2) RAMEZ (acute kidney injury) Code(s): N17.9 - ACUTE KIDNEY FAILURE, UNSPECIFIED Status: Acute (3) Hypertensive crisis Code(s): I16.9 - HYPERTENSIVE CRISIS, UNSPECIFIED Status: Acute (4) CKD stage 3 due to type 1 diabetes mellitus Code(s): E10.22 - TYPE 1 DIABETES MELLITUS W DIABETIC CHRONIC KIDNEY DISEASE; N18.3 - CHRONIC KIDNEY DISEASE, STAGE 3 (MODERATE) Status: Acute (5) Chronic kidney disease, stage 3 Code(s): N18.3 - CHRONIC KIDNEY DISEASE, STAGE 3 (MODERATE) Status: Acute (6) Right upper quadrant abdominal tenderness Code(s): R10.811 - RIGHT UPPER QUADRANT ABDOMINAL TENDERNESS Status: Acute (7) Abdominal pain Code(s): R10.9 - UNSPECIFIED ABDOMINAL PAIN Status: Acute (8) Dementia Code(s): F03.90 - UNSPECIFIED DEMENTIA WITHOUT BEHAVIORAL DISTURBANCE Status: Acute (9) AAA (abdominal aortic aneurysm) Code(s): I71.4 - ABDOMINAL AORTIC ANEURYSM, WITHOUT RUPTURE Status: Acute (10) Cholelithiasis Code(s): K80.20 - CALCULUS OF GALLBLADDER W/O CHOLECYSTITIS W/O OBSTRUCTION Status: Acute (11) Paroxysmal A-fib Code(s): I48.0 - PAROXYSMAL ATRIAL FIBRILLATION Status: Chronic (12) Metabolic acidosis Code(s): E87.2 - ACIDOSIS Status: Acute (13) Constipation Code(s): K59.00 - CONSTIPATION, UNSPECIFIED Status: Acute (14) Acute respiratory failure with hypoxemia Code(s): J96.01 - ACUTE RESPIRATORY FAILURE WITH HYPOXIA Status: Acute - Plan Following further discussion with relatives, they elected to make comfort measures only and will also like to talk with hospice with a view to taking her home with hospice. NPO to continue DC antibiotics. Start IV morphine and ativan as needed case mgt consulted to help with hospice.
--- NOTE | 2018-11-13 14:20 | PRG ---
DATE OF SERVICE: 11/13/2018 SUBJECTIVE: Patient was seen and examined at bedside and overnight events noted. Patient denies any shortness of breath or chest pain or palpitation. No history of nausea or vomiting or diarrhea or fever or chills or cramps. OBJECTIVE: GENERAL: This is an elderly female, in no apparent distress. VITAL SIGNS: Temperature 98.3. Heart rate 72. Respiratory rate 18. Blood pressure 154/71. HEENT: Atraumatic, normocephalic. Oral mucosa is moist NECK: Supple. CARDIOVASCULAR: S1, S2 heard. Rate and rhythm regular. RESPIRATORY: Clear to auscultation. GASTROINTESTINAL: Abdomen is soft. MUSCULOSKELETAL: No tenderness. No edema. DERMATOLOGIC: No skin rash. NEUROLOGIC: Alert and awake and oriented X3. No focal neurologic deficits. Moving all the extremities. PSYCHIATRIC: Mood and affect normal. LABORATORY DATA: Potassium is 3.5, BUN is 66, and creatinine is 3.2. ASSESSMENT AND PLAN: 1. Chronic kidney stage 4 with worsening creatinine. 2. Acute kidney injury. 3. Edema. 4. Left atrophic kidney. 5. Ischemic nephropathy. The patient with poor prognosis and not a surgical candidate. Family decided to take her home with hospice. Job ID: [id number]
[2018-11-13 20:16] VITALS: BP 188/76; TEMP 99.6
--- NOTE | 2018-11-14 23:13 | DIS ---
DATE OF ADMISSION: 11/08/2018 DATE OF DISCHARGE: 11/14/2018 PRIMARY CARE PHYSICIAN: Cassie Trevino DO DIAGNOSES: 1. Acute cholecystitis. 2. Hypertensive urgency. 3. Atrial fibrillation. 4. Chronic kidney disease. 5. Acute on chronic kidney failure. 6. Hypertension. HOSPITAL COURSE: Ms. Dimas was an 83-year-old female, who was admitted to the hospital after she noted that her blood pressure was "bertin high." She also had been having problems with nausea and vomiting for a couple of days prior to admission. Abdominal ultrasound revealed cholelithiasis. She was admitted initially to the ICU due to her elevated blood pressure. She was placed on a Cardene drip and her blood pressure was controlled overnight and she was able to be weaned off the Cardene drip. Ultrasound had demonstrated stones in her gallbladder. For this reason, General Surgery was consulted. She was seen by Dr. Martino and the plan was to proceed with cholecystectomy. Cardiology was also consulted for preop evaluation. Also around this time, she did develop acute kidney injury, possibly related to sepsis as it did not improve after hydration. The patient declined to have surgery. Her family talked with her as well and she made the decision not to pursue any type of surgical intervention, and she decided on palliative care and hospice therapy. However, before hospice could be arranged, the patient peacefully on 11/14/2018. Job ID: [id number]
--- NOTE | 2018-11-16 08:24 | PQF ---
[employer] VALERIY Troy KARRI PÉREZ MD [id number] CLINICAL DOCUMENTATION CLARIFICATION FORM: POST DISCHARGE Addendum to original discharge summary date: ____ Late entry note date: __ DATE: 11/16/2018 ATTN: KARRI PÉREZ MD Please exercise your independent, professional judgment in responding to the clarification form. Clinical indicators are provided on the bottom of this form for your review Diagnosis: ___SEPSIS Present on Admission (POA): [ X] Yes [ ] No [ ] Unable to determine Coding guidelines require hospitals to identify whether a diagnosis was present on admission (POA) or not. To accurately assign the appropriate POA indicator, this information must be clearly documented within the medical record. CLINICAL INDICATORS - SIGNS / SYMPTOMS / LABS Sepsis - Documented in Progress notes on 11/12 by Poncho Braswell BP 171/51 - Documented in ED physician record on 11/08 by MD Shai Polanco WBC 13.8 on 11/09 and 18.0 on 11/10 - Documented in Laboratory results RISK FACTORS: RAMEZ - Documented in H&P on 11/08 by KARRI PÉREZ MD HTN extremely elevated - Documented in H&P on 11/08 by KARRI PÉREZ MD Acute cholecystitis - Documented in DS on 11/14 by KARRI PÉREZ MD TREATMENT: Ceftriaxone1 gm - Documentd in Medication snapshot (This form is maintained as a part of the permanent medical record) 2014 [employer]. All Rights Reserved [email or web address] [[email or web address]] [email or web address]
== END 2018-11-14 00:25 | disposition expired | DRG 871 ==
LOC: ERS 12:44 → CCU 14:57 → T4-B 11-09 17:59
PROVIDERS: ADMIT Internal Medicine; ATTEND Internal Medicine
DX: A41.9 Sepsis, unspecified organism (principal); J96.01 Acute respiratory failure with hypoxia; I16.1 Hypertensive emergency; N17.9 Acute kidney failure, unspecified; E87.2 Acidosis; K56.609 Unspecified intestinal obstruction, unspecified as to partial versus complete obstruction; K80.00 Calculus of gallbladder with acute cholecystitis without obstruction; N18.3 Chronic kidney disease, stage 3 (moderate); Z66 Do not resuscitate; D63.1 Anemia in chronic kidney disease; I48.0 Paroxysmal atrial fibrillation; F03.90 Unspecified dementia, unspecified severity, without behavioral disturbance, psychotic disturbance, mood disturbance, and anxiety; I12.9 Hypertensive chronic kidney disease with stage 1 through stage 4 chronic kidney disease, or unspecified chronic kidney disease; R79.89 Other specified abnormal findings of blood chemistry; I71.4 Abdominal aortic aneurysm, without rupture; D72.829 Elevated white blood cell count, unspecified; K59.00 Constipation, unspecified; Z88.2 Allergy status to sulfonamides; Z86.73 Personal history of transient ischemic attack (TIA), and cerebral infarction without residual deficits; Z98.49 Cataract extraction status, unspecified eye; Z98.890 Other specified postprocedural states; Z88.0 Allergy status to penicillin; Z79.899 Other long term (current) drug therapy; Z79.01 Long term (current) use of anticoagulants
CPT/HCPCS: 36415; 36416; 71045; 74018; 74176; 76700; 80048; 80053; 80069; 80076; 82805; 85025; 93005; 96365; 96375; 96376; C9113; J0696; J1650; J2270; J2405; J2543; J3490; J7050; Q0162; S0028